=== PATIENT | male | born 1950 | race Caucasian/White ===

== ENCOUNTER → 2018-10-24 | Outpatient (CLI) | payer MEDICARE ==
--- NOTE | 2018-10-24 17:20 | XR ---
EXAMINATION TYPE: XR chest 2V DATE OF EXAM: 10/24/2018 COMPARISON: NONE HISTORY: J 20.9, cough and congestion TECHNIQUE: Frontal and lateral views of the chest are obtained. FINDINGS: There are prominent lung volumes which may be indicative of underlying COPD. There is no fo miguelina air space opacity, pleural effusion, or pneumothorax seen. The cardiac silhouette size is within normal limits. The osseous structures are intact. IMPRESSION: No acute cardiopulmonary process.
== END | disposition home or self-care (01) ==
LOC: RADXRMAIN 14:22
PROVIDERS: ATTEND Family Medicine
DX: J20.9 Acute bronchitis, unspecified (principal)
CPT/HCPCS: 71046

== ENCOUNTER 2019-02-17 04:06 | Emergency (ER) | payer MEDICARE ==
--- NOTE | 2019-02-17 04:33 | ED ---
Neuro HPI - General Chief Complaint: Neuro Symptoms/Deficit Stated Complaint: Weakness Time Seen by Provider: 02/17/19 04:09 Source: patient, family Mode of arrival: ambulatory Limitations: no limitations - History of Present Illness Is the patient presenting with stroke symptoms?: Yes Last Known Well Date: 02/17/19 Last Known Well Time: 03:00 Initial Comments: Jignesh is a pleasant 68-year-old gentleman who presents the ER today via EMS for evaluation of weakness and seizure-like activity. Patient reports that over the past couple days he has noticed some intermittent weakness of his left hand he has had to have his helping pull up his pants due to weakness in the h and however he's been getting along with his activities of daily living. He has also noticed some mild headache but no facial droop trouble speaking or swallowing. Patient reports he was in his usual state of health when he went to bed last night. He woke this morning at 3 AM from a distressing dream and reported that he had inability to move his left leg and worsening weakness of his left hand. Patient relates she was in can be able to get himself out of bed and asked his to call EMS. Patient also notes that after waking he seems to have developed a focal twitch or muscle spasm of his abdomen and left arm. This is new for him. Patient is awake alert oriented. - Related Data Home Medications: Home Medications Medication Instructions Recorded Confirmed Atorvastatin [Lipitor] 20 mg PO HS 12/18/15 10/31/17 Celecoxib [CeleBREX] 100 mg PO BID 12/18/15 10/31/17 Latanoprost/Pf [Latanoprost 0.005% 1 drop BOTH EYES HS 10/31/17 10/31/17 Eye Drop] Allergies/Adverse Reactions: Allergies Allergy/AdvReac Type Severity Reaction Status Date / Time venom-honey bee Allergy Swelling Verified 02/17/19 04:14 [bee venom (honey bee)] Review of Systems ROS Statement: Those systems with pertinent positive or pertinent negative responses have been documented in the HPI. ROS Other: All systems not noted in ROS Statement are negative. General Exam Limitations: no limitations Stroke MDM - Lab Data Result diagrams: 02/17/19 04:30 02/17/19 04:30 Lab Results 02/17/19 02/17/19 02/17/19 Range/Units 04:30 04:30 04:30 WBC 7.4 (3.8-10.6) k/uL RBC 5.00 (4.30-5.90) m/uL Hgb 16.0 (13.0-17.5) gm/dL Hct 46.3 (39.0-53.0) % MCV 92.7 (80.0-100.0) fL MCH 32.0 (25.0-35.0) pg MCHC 34.5 (31.0-37.0) g/dL RDW 12.3 (11.5-15.5) % Plt Count 172 (150-450) k/uL Neutrophils % 68 % Lymphocytes % 23 % Monocytes % 6 % Eosinophils % 1 % Basophils % 0 % Neutrophils # 5.0 (1.3-7.7) k/uL Lymphocytes # 1.7 (1.0-4.8) k/uL Monocytes # 0.5 (0-1.0) k/uL Eosinophils # 0.1 (0-0.7) k/uL Basophils # 0.0 (0-0.2) k/uL PT 10.0 (9.0-12.0) sec INR 0.9 (<1.2) APTT 22.6 (22.0-30.0) sec Sodium 139 (137-145) mmol/L Potassium 4.3 (3.5-5.1) mmol/L Chloride 105 (98-107) mmol/L Carbon Dioxide 25 (22-30) mmol/L Anion Gap 9 mmol/L BUN 21 H (9-20) mg/dL Creatinine 0.79 (0.66-1.25) mg/dL Est GFR (CKD-EPI)AfAm >90 (>60 ml/min/1.73 sqM) Est GFR (CKD-EPI)NonAf >90 (>60 ml/min/1.73 sqM) Glucose 127 H (74-99) mg/dL Calcium 9.3 (8.4-10.2) mg/dL Total Bilirubin 0.7 (0.2-1.3) mg/dL AST 23 (17-59) U/L ALT 32 (21-72) U/L Alkaline Phosphatase 51 (38-126) U/L Troponin I (0.000-0.034) ng/mL Total Protein 7.1 (6.3-8.2) g/dL Albumin 4.4 (3.5-5.0) g/dL 02/17/19 Range/Units 04:30 WBC (3.8-10.6) k/uL RBC (4.30-5.90) m/uL Hgb (13.0-17.5) gm/dL Hct (39.0-53.0) % MCV (80.0-100.0) fL MCH (25.0-35.0) pg MCHC (31.0-37.0) g/dL RDW (11.5-15.5) % Plt Count (150-450) k/uL Neutrophils % % Lymphocytes % % Monocytes % % Eosinophils % % Basophils % % Neutrophils # (1.3-7.7) k/uL Lymphocytes # (1.0-4.8) k/uL Monocytes # (0-1.0) k/uL Eosinophils # (0-0.7) k/uL Basophils # (0-0.2) k/uL PT (9.0-12.0) sec INR (<1.2) APTT (22.0-30.0) sec Sodium (137-145) mmol/L Potassium (3.5-5.1) mmol/L Chloride (98-107) mmol/L Carbon Dioxide (22-30) mmol/L Anion Gap mmol/L BUN (9-20) mg/dL Creatinine (0.66-1.25) mg/dL Est GFR (CKD-EPI)AfAm (>60 ml/min/1.73 sqM) Est GFR (CKD-EPI)NonAf (>60 ml/min/1.73 sqM) Glucose (74-99) mg/dL Calcium (8.4-10.2) mg/dL Total Bilirubin (0.2-1.3) mg/dL AST (17-59) U/L ALT (21-72) U/L Alkaline Phosphatase (38-126) U/L Troponin I <0.012 (0.000-0.034) ng/mL Total Protein (6.3-8.2) g/dL Albumin (3.5-5.0) g/dL - NIH Stroke Scale 1a. Level of Consciousness: (0) alert 1b. LOC Questions: (0) answers correctly 1c. LOC Commands: (0) performs tasks correctly 2. Best Gaze: (0) normal 3. Visual: (0) no visual loss 4. Facial Palsy: (0) normal symmetrical movement 5a. Motor Arm Left: (1) drift 5b. Motor Arm Right: (0) no drift 6a. Motor Leg Left: (3) no gravity effort 6b. Motor Leg Right: (0) no drift 7. Limb Ataxia: (1) present 1 limb 8. Sensory: (0) normal 9. Best Language: (0) no aphasia 10. Dysarthria: (0) normal 11. Extinction/Inattention: (0) no abnormality - Medical Decision Making The patient was seen and evaluated, history was obtained from the patient at bedside and EMS 68-year-old gentleman with a history of colon cancer presenting with recent headaches, recent weakness and left arm now that an onset of weakness in the left leg and twitching movements concerning for focal seizure of the abdominal wall her diaphragm. However these twitching movements seem to be distractible as the patient is not having numbness or testing strength and range of motion of the extremities. Considering the patient's history of recent headaches with new neurologic deficits there is concern for stroke vs mass therefore code stroke was activated I reviewed the patient's head CT as it was completed and found that he had a large right-sided mass with significant vasogenic edema, the lateral ventricle seems compressed however there is no significant midline shift no compression of the fourth ventricle no signs of hydrocephalus Patient care was discussed with interventional neurology inspector balance wheel motion Dr. Haas who also reviewed the patient's images from home and agrees this is likely a brain mass with vasogenic edema recommends Keppra and Decadron neck sign Keppra and Decadron ordered Patient care was discussed with transferring physician at [facility] who discussed the case with neurosurgery who accepts the transfer. Patient will be transferred as an ER to ER transfer for further evaluation by neurosurgery. Patient and were updated on findings concerning for possible metastatic disease versus primary brain mass with swelling. Advised that they will be given medications for the swelling and to slow seizures. Questions pertaining care were answered the best my ability patient's transferred to [facility] for neurosurgical evaluation. Upon receiving Decadron as it began to infuse slowly patient became bradycardic with a heart rate in the 30s, pale diaphoretic, blood pressure was noted to be in the 70s over 30s, this persisted for greater than 2 minutes and decision was made to give atropine for symptomatically bradycardia. Patient received atropine he remained bradycardic for her proximately another minute and then heart rate improved to 100 206 sinus tachycardia. Patient's blood pressure resolved. Patient reported he was feeling better. [facility] about this and requested the EMS transport priority 1 lights and sirens to expedite evaluation by neurosurgery. Past Medical History Past Medical History: Eye Disorder, Hyperlipidemia Additional Past Medical History / Comment(s): glaucoma History of Any Multi-Drug Resistant Organisms: None Reported Past Surgical History: No Surgical Hx Reported Additional Past Surgical History / Comment(s): Colonoscopies; Feet / toenails & cyst off foot; eye lasix surgery Past Anesthesia/Blood Transfusion Reactions: No Reported Reaction Past Psychological History: No Psychological Hx Reported Smoking Status: Current some day smoker Past Alcohol Use History: None Reported Past Drug Use History: None Reported - Past Family History Mother Family Medical History: Cancer Additional Family Medical History / Comment(s): Colon Cancer Course Vital Signs 02/17/19 02/17/19 02/17/19 04:07 04:17 04:27 Temperature 99 F Pulse Rate 83 78 80 Respiratory 20 Rate Blood Pressure 141/86 131/75 141/71 O2 Sat by Pulse 99 97 98 Oximetry 02/17/19 02/17/19 02/17/19 04:32 04:37 04:47 Temperature Pulse Rate 70 82 80 Respiratory 20 20 Rate Blood Pressure 140/74 135/72 O2 Sat by Pulse 98 98 Oximetry 02/17/19 02/17/19 02/17/19 05:00 05:05 05:07 Temperature Pulse Rate 35 L 31 L 105 H Respiratory 20 18 Rate Blood Pressure 122/62 76/46 129/80 O2 Sat by Pulse 95 Oximetry 02/17/19 02/17/19 02/17/19 05:12 05:15 05:35 Temperature 98.3 F Pulse Rate 111 H 112 H 110 H Respiratory 20 20 20 Rate Blood Pressure 144/96 118/85 118/85 O2 Sat by Pulse 96 99 98 Oximetry Critical Care Time Critical Care Time: Yes Total Critical Care Time: 30 Critical Care Time: Critical Care Time Critical care time was exclusive of separately billable procedures and treating other patients and teaching time. Critical care was necessary to treat or prevent imminent or life-threatening deterioration. Given the critical condition in which the patient arrived, the patient was immediately assessed by myself and the nurse, and cardiac monitoring initiated due to the potential for rapid decompensation of the patient's clinical condition. During the course of the patients stay, I spent a considerable amount of time at the bedside performing serial re-evaluations of the patient's hemodynamic and clinical status because of the recognized potential threat to life or limb in this condition. I then had a chance to review not only all of the available current laboratory and radiographic studies obtained today, but I also reviewed old records available to me at the time. Additionally, any ancillary information available including canal [employer] captain records were reviewed. Sequential vital signs were obtained. Disposition Clinical Impression: Brain mass, Cerebral edema, Stroke-like symptoms Disposition: OTHER INSTITUTION NOT DEFINED Condition: Serious Referrals: Dennis Salcido MD [Primary Care Provider] - 1-2 days - Out of Hospital Transfer - Req. Specs Out of Hospital Transfer - Requested Specifics: Other Emergency Center ([facility])
[2019-02-17] MEDS ORDERED: LORazepam 2 MG/ML INJ IV STA (04:35)
[2019-02-17] MEDS ORDERED: levETIRAcetam IV 1,000 MG in SALINE 1 100ML.BAG IVPB STA (04:49)
--- NOTE | 2019-02-17 04:50 | XR ---
EXAMINATION TYPE: XR chest 1V DATE OF EXAM: 02/17/2019 COMPARISON: 10/24/2018 HISTORY: Altered mental status TECHNIQUE: Single frontal view of the chest is obtained. FINDINGS: There is no heart failure nor confluent pneumonic infiltrate. Heart size is normal. Costop hrenic angles are clear. The bony thorax is intact. There are chest leads. IMPRESSION: Normal chest. No change.
[2019-02-17 04:51] LABS: Basophils % (A) 0 %; Eosinophils # (A) 0.1 k/uL (0-0.7); Eosinophils % (A) 1 %; HCT 46.3 % (39.0-53.0); Lymphocytes # (A) 1.7 k/uL (1.0-4.8); Lymphocytes % (A) 23 %; MCHC 34.5 g/dL (31.0-37.0); MCV 92.7 fL (80.0-100.0); Mean Platelet Volume 8.6; Monocytes # (A) 0.5 k/uL (0-1.0); Monocytes % (A) 6 %; Neutrophils % (A) 68 %; Platelet Count 172 k/uL (150-450); RDW 12.3 % (11.5-15.5); WBC 7.4 k/uL (3.8-10.6)
[2019-02-17] MEDS ORDERED: DEXAMETHASONE SOD PHOSPHATE 10 MG/ML 1 ML VIAL IV STA (04:52)
--- NOTE | 2019-02-17 04:53 | CT ---
EXAMINATION TYPE: CT brain wo con for TPA DATE OF EXAM: 02/17/2019 COMPARISON: None HISTORY: Left side weakness, spasms, code stroke CT DLP: 2258.40 mGycm Automated exposure control for dose reduction was used. There is a 3.2 cm rounded area of mixed density in the bruce-white matter junction right parietal lobe with surrounding edema. This is consistent with a tumor. There is some effacement of the occipital h orn right lateral ventricle. There is no sign of intracranial hemorrhage. Calvarium is intact. No oth er mass identified. Skull base is intact. IMPRESSION: Right parietal lobe mass with surrounding vasogenic edema consistent with tumor. Follow-up recommende d. Contrast CT or MR scan would be helpful for further evaluation if clinically indicated.
[2019-02-17 05:00] LABS: INR 0.9 (<1.2); Partial Thromboplastin Time 22.6 sec (22.0-30.0)
[2019-02-17 05:02] LABS: ALT 32 U/L (21-72); AST 23 U/L (17-59); African American GFR (CKD) >90 (>60 ml/min/1.73 sqM); Albumin 4.4 g/dL (3.5-5.0); Alkaline Phosphatase 51 U/L (38-126); Anion Gap 9 mmol/L; Blood Urea Nitrogen 21 mg/dL (9-20); Calcium 9.3 mg/dL (8.4-10.2); Carbon Dioxide 25 mmol/L (22-30); Chloride 105 mmol/L (98-107); Glucose 127 mg/dL (74-99); Non-African American GFR(CKD) >90 (>60 ml/min/1.73 sqM); Potassium 4.3 mmol/L (3.5-5.1); Sodium 139 mmol/L (137-145); Total Bilirubin 0.7 mg/dL (0.2-1.3); Total Protein 7.1 g/dL (6.3-8.2)
[2019-02-17] MEDS ORDERED: ATROPINE SULFATE 0.1 MG/ML 10ML SYRINGE IV STA (05:06)
[2019-02-17 05:14] VITALS: RESP 20
[2019-02-17 05:17] VITALS: BP 118/85; TEMP 98.3
[2019-02-17 05:36] VITALS: PULSE 110
== END 2019-02-17 05:36 | disposition other institution (70) ==
LOC: EC 04:06
DX: G93.6 Cerebral edema (principal); G93.89 Other specified disorders of brain; R29.90 Unspecified symptoms and signs involving the nervous system; E78.5 Hyperlipidemia, unspecified; F17.200 Nicotine dependence, unspecified, uncomplicated; Z79.899 Other long term (current) drug therapy; Z91.030 Bee allergy status; Z85.038 Personal history of other malignant neoplasm of large intestine
CPT/HCPCS: 36415; 93005; 80053; 84484; 85025; 85610; 85730; 71045; 70450; 99291; 96365; 96375 ×3; J2060; J1100; J0461; J1953

== ENCOUNTER 2019-10-29 15:48 | Emergency (ER) | payer MEDICARE ==
[2019-10-29 15:56] VITALS: RESP 18
[2019-10-29 16:53] LABS: Anisocytosis Moderate; HCT 29.5 % (39.0-53.0); HGB 9.4 gm/dL (13.0-17.5); Hypochromasia Moderate; MCH 38.4 pg (25.0-35.0); MCV 120.3 fL (80.0-100.0); Macrocytosis Marked; Mean Platelet Volume 10.3; Poikilocytosis Moderate; RBC 2.45 m/uL (4.30-5.90); RDW 21.4 % (11.5-15.5)
[2019-10-29 17:32] LABS: Anisocytosis (M) Present; Band Neutrophils % 3 %; Lymphocytes # (M) 0.48 k/uL (1.0-4.8); Monocytes # (M) 0.36 k/uL (0-1.0); Neutrophils % (M) 84 %; Nucleated Red Blood Cells 2 /100 WBC (0-0); Poikilocytosis (M) Present; Polychromasia Present; Total Cells Counted 200
[2019-10-29 17:33] LABS: Platelet Count 87 k/uL (150-450)
--- NOTE | 2019-10-29 17:44 | ED ---
Lower Extremity Injury HPI - General Chief Complaint: Extremity Injury, Lower Stated Complaint: Blood Clot from [facility] Time Seen by Provider: 10/29/19 15:59 Source: patient Mode of arrival: ambulatory Limitations: no limitations - History of Present Illness Initial Comments: 69yo [facility] + [facility]. Patietn staets he has had on and off s welling x 3 weeks. Patient states yesterday was the worst. 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 Patient denies pain. Denies shortness of breath, hemoptysis, or pain wtih deep breath/chest pain. Patient denies anticoagulation use. Admits to [facility] at time. Denies recent surgeries. Patient has no additional complaints. Upon arrival patient appears well there is no signs of acute distress. - Related Data Home Medications Medication Instructions Recorded Confirmed Atorvastatin [Lipitor] 20 mg PO HS 12/18/15 10/31/17 Celecoxib [CeleBREX] 100 mg PO BID 12/18/15 10/31/17 Latanoprost/Pf [Latanoprost 0.005% 1 drop BOTH EYES HS 10/31/17 10/31/17 Eye Drop] Previous Rx's Medication Instructions Recorded Apixaban [Eliquis Starter Pack 0 mg PO DIRECTED 30 Days #1 pack 10/29/19 (for VTE)] Allergies Allergy/AdvReac Type Severity Reaction Status Date / Time venom-honey bee Allergy Swelling Verified 10/29/19 15:53 [bee venom (honey bee)] Review of Systems ROS Statement: Those systems with pertinent positive or pertinent negative responses have been documented in the HPI. ROS Other: All systems not noted in ROS Statement are negative. Past Medical History Past Medical History: Eye Disorder, Hyperlipidemia Additional Past Medical History / Comment(s): glaucoma, brain tumor History of Any Multi-Drug Resistant Organisms: None Reported Past Surgical History: No Surgical Hx Reported Additional Past Surgical History / Comment(s): Colonoscopies; Feet / toenails & cyst off foot; eye lasix surgery, brain surgery for R sided tumor Past Anesthesia/Blood Transfusion Reactions: No Reported Reaction Past Psychological History: No Psychological Hx Reported Smoking Status: Never smoker Past Alcohol Use History: None Reported Past Drug Use History: None Reported - Past Family History Mother Family Medical History: Cancer Additional Family Medical History / Comment(s): Colon Cancer General Exam - General Exam Comments Initial Comments: General: The patient is awake and alert, in no distress, and does not appear acutely ill. Eye: Pupils are equal, round and reactive to light, extra-ocular movements are intact. No nystagmus. There is normal conjunctiva bilaterally. No signs of icterus. Cardiovascular: There is a regular rate and rhythm. No murmur, rub or gallop is appreciated. Respiratory: Lungs are clear to auscultation, respirations are non-labored, breath sounds are equal. No wheezes, stridor, rales, or rhonchi. Musculoskeletal: Normal ROM, no tenderness. Strength 5/5. Sensation intact. DP pulses equal bilaterally 2+. Neurological: A&O x 3. CN II-XII intact grossly, There are no obvious motor or sensory deficits. Coordination appears grossly intact. Speech is normal. Skin: Skin is warm and dry and no rashes or lesions are noted. LEft LE swelling, mild-moderate. Psychiatric: Cooperative, appropriate mood & affect, normal judgment. Limitations: no limitations Course Vital Signs 10/29/19 10/29/19 15:53 18:13 Temperature 98.1 F 98.3 F Pulse Rate 74 63 Respiratory 18 18 Rate Blood Pressure 127/82 133/73 O2 Sat by Pulse 98 98 Oximetry Medical Decision Making - Medical Decision Making + popliteal DVT. Platelets 87. Patient denies recent procedures. Patient will be treated with eliquis. Discussed case [facility]. Attempted to contact oncologist, no success. Patient is to contact oncologist office in AM. Return parameters and risks of bleeding discussed, patient discharged appearing well agreeable to care plan. - Lab Data Result diagrams: 10/29/19 16:28 Lab Results 10/29/19 Range/Units 16:28 WBC 6.0 (3.8-10.6) k/uL RBC 2.45 L (4.30-5.90) m/uL Hgb 9.4 L (13.0-17.5) gm/dL Hct 29.5 L (39.0-53.0) % MCV 120.3 H (80.0-100.0) fL MCH 38.4 H (25.0-35.0) pg MCHC 32.0 (31.0-37.0) g/dL RDW 21.4 H (11.5-15.5) % Plt Count 87 L (150-450) k/uL Neutrophils % (Manual) 84 % Band Neutrophils % 3 % Lymphocytes % (Manual) 8 % Monocytes % (Manual) 6 % Neutrophils # (Manual) 5.20 (1.3-7.7) k/uL Lymphocytes # (Manual) 0.48 L (1.0-4.8) k/uL Monocytes # (Manual) 0.36 (0-1.0) k/uL Nucleated RBCs 2 H (0-0) /100 WBC Manual Slide Review Performed Polychromasia Present Hypochromasia Moderate Poikilocytosis Moderate Poikilocytosis (manual Present Anisocytosis Moderate Anisocytosis (manual) Present Macrocytosis Marked A Disposition Clinical Impression: DVT (deep venous thrombosis), Left leg swelling Disposition: HOME SELF-CARE Condition: Good Instructions (If sedation given, give patient instructions): Deep Vein Thrombosis (ED) Additional Instructions: Please use medication as discussed. Please follow-up with family doctor in the next 2 days. Contact oncologist tomorrow AM to discuss findings. Please return to emergency room if the symptoms increase or worsen or for any other concerns. Prescriptions: Apixaban [Eliquis Starter Pack (for VTE)] 0 mg PO DIRECTED 30 Days #1 pack Is patient prescribed a controlled substance at d/c from ED?: No Referrals: Dennis Salcido MD [Primary Care Provider] - 1-2 days Time of Disposition: 17:44
[2019-10-29 18:14] VITALS: BP 133/73; PULSE 63; TEMP 98.3
== END 2019-10-29 18:15 | disposition home or self-care (01) ==
LOC: EC 15:48
DX: I82.439 Acute embolism and thrombosis of unspecified popliteal vein (principal); E78.5 Hyperlipidemia, unspecified; Z79.899 Other long term (current) drug therapy; Z91.030 Bee allergy status; Z85.841 Personal history of malignant neoplasm of brain
CPT/HCPCS: 36415; 85025; 99283

== ENCOUNTER → 2019-10-29 | Outpatient (CLI) | payer MEDICARE ==
--- NOTE | 2019-10-29 15:43 | US ---
EXAMINATION TYPE: US venous doppler duplex LE DATE OF EXAM: 10/29/2019 3:29 PM COMPARISON: NONE CLINICAL HISTORY: R60.0 edema. Left leg swelling SIDE PERFORMED: Bilateral TECHNIQUE: The lower extremity deep venous system is examined utilizing real time linear array sonog jono with graded compression, doppler sonography and color-flow sonography. VESSELS IMAGED: External Iliac Vein (EIV) Common Femoral Vein Deep Femoral Vein Greater Saphenous Vein * Femoral Vein Popliteal Vein Small Saphenous Vein * Proximal Calf Veins (* superficial vessels) Right Leg: Appears negative for DVT Left Leg: Positive for DVT popliteal vein IMPRESSION: 1. Exam positive for acute DVT left popliteal vein.
== END | disposition home or self-care (01) ==
LOC: RADUSWWP 14:55
PROVIDERS: ATTEND Family Medicine
DX: I82.432 Acute embolism and thrombosis of left popliteal vein (principal)
CPT/HCPCS: 93970

== ENCOUNTER 2020-02-27 22:35 | Emergency (ER) | payer MEDICARE ==
[2020-02-27] MEDS ORDERED: LORazepam 2 MG/ML INJ IV STA (22:40)
[2020-02-27 23:01] LABS: Basophils % (A) 1 %; Eosinophils % (A) 1 %; HCT 44.9 % (39.0-53.0); HGB 15.5 gm/dL (13.0-17.5); Lymphocytes # (A) 0.9 k/uL (1.0-4.8); Lymphocytes % (A) 15 %; MCH 33.6 pg (25.0-35.0); MCHC 34.4 g/dL (31.0-37.0); MCV 97.7 fL (80.0-100.0); Mean Platelet Volume 7.5; Monocytes # (A) 0.3 k/uL (0-1.0); Monocytes % (A) 5 %; Neutrophils # (A) 4.4 k/uL (1.3-7.7); Neutrophils % (A) 78 %; Platelet Count 104 k/uL (150-450); RDW 14.6 % (11.5-15.5); WBC 5.7 k/uL (3.8-10.6)
[2020-02-27 23:10] LABS: ALT 30 U/L (4-49); AST 24 U/L (17-59); African American GFR (CKD) >90 (>60 ml/min/1.73 sqM); Albumin 3.8 g/dL (3.5-5.0); Alkaline Phosphatase 34 U/L (38-126); Anion Gap 8 mmol/L; Blood Urea Nitrogen 23 mg/dL (9-20); Carbon Dioxide 22 mmol/L (22-30); Chloride 107 mmol/L (98-107); Glucose 147 mg/dL (74-99); Magnesium 1.8 mg/dL (1.6-2.3); Non-African American GFR(CKD) >90 (>60 ml/min/1.73 sqM); Sodium 137 mmol/L (137-145); Total Bilirubin 0.7 mg/dL (0.2-1.3); Total Protein 6.1 g/dL (6.3-8.2)
--- NOTE | 2020-02-27 23:26 | ED ---
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 He takes Keppra for seizure control and it has been weeks since previous seizure. He states that tonight a bit after 8 PM noticed that he was having tonic-clonic movements of his left lower extremity up to his abdomen. He states this is characteristic of the partial focal seizures that he gets. He tried taking home Xanax, but when symptoms persisted for 60 minutes he called EMS. He was given dose of Versed 2 mg. The patient states she has been compliant with his Keppra. He states that he was stressed somewhat about making Dominique arrangements. The patient denies any other change. No headache. No fever or chills. No generalization or loss consciousness. MD Complaint: seizure Onset/Timin -: hour(s) Description of Episode: tonic-clonic movement Duration of Episode: 60 -: minutes(s) Witnessed: yes - by bystander Trauma: No Seizure History: known seizure disorder Possible Precipitating Event: stress Associated Symptoms: denies other symptoms Treatments Prior to Arrival: benzodiazepines - Related Data Home Medications Medication Instructions Recorded Confirmed Atorvastatin [Lipitor] 20 mg PO HS 12/18/15 02/27/20 Latanoprost/Pf [Latanoprost 0.005% 1 drop BOTH EYES HS 10/31/17 02/27/20 Eye Drop] ALPRAZolam [Xanax] 0.5 mg PO HS PRN 02/27/20 02/27/20 Apixaban [Eliquis] 5 mg PO BID 02/27/20 02/27/20 Diclofenac Sodium Gel [Voltaren 2 gm TOPICAL DAILY PRN 02/27/20 02/27/20 Gel] Lidocaine-Prilocaine Cream [Emla 1 applic TOPICAL DAILY PRN 02/27/20 02/27/20 Cream 2.5%/2.5%] Omeprazole 20 mg PO DAILY 02/27/20 02/27/20 Sulfamethox-Tmp 800-160Mg [Bactrim 1 tab PO MOWEFR 02/27/20 02/27/20 DS 800-160 mg] Zolpidem [Ambien] 5 mg PO HS 02/27/20 02/27/20 dexAMETHasone [Dexamethasone] 2 mg PO DAILY 02/27/20 02/27/20 levETIRAcetam [Keppra] 1,000 mg PO HS 02/27/20 02/27/20 levETIRAcetam [Keppra] 500 mg PO DAILY 02/27/20 02/27/20 Previous Rx's Medication Instructions Recorded diazePAM [Valium] 5 mg PO Q8HR PRN 3 Days #9 tab 02/28/20 Allergies Allergy/AdvReac Type Severity Reaction Status Date / Time venom-honey bee Allergy Swelling Verified 02/27/20 23:40 [bee venom (honey bee)] Review of Systems ROS Statement: Those systems with pertinent positive or pertinent negative responses have been documented in the HPI. ROS Other: All systems not noted in ROS Statement are negative. Constitutional: Denies: fever, chills Eyes: Denies: vision change ENT: Denies: hearing loss Respiratory: Denies: cough, dyspnea Cardiovascular: Denies: chest pain, palpitations, syncope Gastrointestinal: Denies: abdominal pain, vomiting, diarrhea Genitourinary: Denies: dysuria, hematuria Musculoskeletal: Denies: back pain Skin: Denies: rash Neurological: Reports: as per HPI. Denies: headache, weakness, numbness, paresthesias, confusion Psychiatric: Reports: anxiety Past Medical History Past Medical History: Eye Disorder, Hyperlipidemia Additional Past Medical History / Comment(s): glaucoma, brain tumor History of Any Multi-Drug Resistant Organisms: None Reported Past Surgical History: No Surgical Hx Reported Additional Past Surgical History / Comment(s): Colonoscopies; Feet / toenails & cyst off foot; eye lasix surgery, brain surgery for R sided tumor Past Anesthesia/Blood Transfusion Reactions: No Reported Reaction Past Psychological History: No Psychological Hx Reported Smoking Status: Never smoker Past Alcohol Use History: None Reported Past Drug Use History: None Reported - Past Family History Mother Family Medical History: Cancer Additional Family Medical History / Comment(s): Colon Cancer General Exam General appearance: alert, in no apparent distress Head exam: Present: atraumatic, normocephalic Eye exam: Present: normal appearance. Absent: scleral icterus, conjunctival injection ENT exam: Present: normal oropharynx Neck exam: Present: normal inspection, full ROM. Absent: tenderness Respiratory exam: Present: normal lung sounds bilaterally. Absent: respiratory distress, wheezes, rales, rhonchi, stridor Cardiovascular Exam: Present: regular rate, normal rhythm, normal heart sounds. Absent: systolic murmur, diastolic murmur, rubs, gallop GI/Abdominal exam: Present: soft. Absent: distended, tenderness, guarding, rebound, rigid, mass Extremities exam: Present: normal inspection, normal capillary refill. Absent: pedal edema, calf tenderness Back exam: Present: normal inspection. Absent: CVA tenderness (R), CVA tenderness (L) Neurological exam: Present: alert, oriented X3, CN II-XII intact. Absent: motor sensory deficit Skin exam: Present: warm, dry, intact, normal color. Absent: rash Course Vital Signs 02/27/20 02/28/20 22:37 00:29 Temperature 97.5 F L Pulse Rate 100 78 Respiratory 19 18 Rate Blood Pressure 173/111 130/89 O2 Sat by Pulse 94 L 98 Oximetry Medical Decision Making - Lab Data Result diagrams: 02/27/20 22:47 02/27/20 22:47 Lab Results 02/27/20 02/27/20 02/27/20 Range/Units 22:47 22:47 22:47 WBC 5.7 (3.8-10.6) k/uL RBC 4.60 (4.30-5.90) m/uL Hgb 15.5 (13.0-17.5) gm/dL Hct 44.9 (39.0-53.0) % MCV 97.7 (80.0-100.0) fL MCH 33.6 (25.0-35.0) pg MCHC 34.4 (31.0-37.0) g/dL RDW 14.6 (11.5-15.5) % Plt Count 104 L (150-450) k/uL MPV 7.5 Neutrophils % 78 % Lymphocytes % 15 % Monocytes % 5 % Eosinophils % 1 % Basophils % 1 % Neutrophils # 4.4 (1.3-7.7) k/uL Lymphocytes # 0.9 L (1.0-4.8) k/uL Monocytes # 0.3 (0-1.0) k/uL Eosinophils # 0.0 (0-0.7) k/uL Basophils # 0.0 (0-0.2) k/uL Sodium 137 (137-145) mmol/L Potassium 4.0 (3.5-5.1) mmol/L Chloride 107 (98-107) mmol/L Carbon Dioxide 22 (22-30) mmol/L Anion Gap 8 mmol/L BUN 23 H (9-20) mg/dL Creatinine 0.65 L (0.66-1.25) mg/dL Est GFR (CKD-EPI)AfAm >90 (>60 ml/min/1.73 sqM) Est GFR (CKD-EPI)NonAf >90 (>60 ml/min/1.73 sqM) Glucose 147 H (74-99) mg/dL Plasma Lactic Acid Leo 3.1 H* (0.7-2.0) mmol/L Calcium 9.0 (8.4-10.2) mg/dL Magnesium 1.8 (1.6-2.3) mg/dL Total Bilirubin 0.7 (0.2-1.3) mg/dL AST 24 (17-59) U/L ALT 30 (4-49) U/L Alkaline Phosphatase 34 L (38-126) U/L Total Protein 6.1 L (6.3-8.2) g/dL Albumin 3.8 (3.5-5.0) g/dL - EKG Data -: EKG Interpreted by Il EKG shows normal: sinus rhythm, axis (Normal), intervals (Normal), QRS complexes (Normal), ST-T waves (Normal) Rate: normal (Rate 89 bpm) Interpretation: normal EKG Disposition Clinical Impression: Focal seizure Disposition: HOME SELF-CARE Condition: Good Instructions (If sedation given, give patient instructions): Recurrent Seizures in Adults (ED) Prescriptions: diazePAM [Valium] 5 mg PO Q8HR PRN 3 Days #9 tab PRN Reason: Seizures Is patient prescribed a controlled substance at d/c from ED?: No Referrals: Dennis Salcido MD [Primary Care Provider] - 1-2 days
--- NOTE | 2020-02-27 23:35 | CT ---
EXAM: CT Head Without Intravenous Contrast CLINICAL HISTORY: ITS.REASON CT Reason: seizure TECHNIQUE: Axial computed tomography images of the head/brain without intravenous contrast. CTDI is 49.27 mGy and DLP is 1166.4 mGy-cm. This CT exam was performed using one or more of the following dose reduction techniques: automated exposure control, adjustment of the mA and/or kV according to patient size, and/or use of iterative reconstruction technique. COMPARISON: CT head dated 02/17/2019 FINDINGS: Brain: No acute infarct or hemorrhage. There is an ill-defined lesion with calcification and moderate vasogenic edema seen within the right parietal lobe likely representing neoplasm. Correlate with patient history. Ventricles: Unremarkable. No ventriculomegaly. Bones/joints: Status post right allegra-craniotomy. No acute calvarial fracture. Soft tissues: Unremarkable. Sinuses: Unremarkable as visualized. Mastoid air cells: Unremarkable as visualized. IMPRESSION: 1. No acute infarct or hemorrhage. 2. There is an ill-defined lesion with calcification and moderate vasogenic edema seen within the right parietal lobe likely representing known neoplasm. Correlate with patient history and recent MRI.
[2020-02-28] MEDS ORDERED: SODIUM CHLORIDE 0.9% 1,000 ML IV ONE (00:17)
[2020-02-28 00:33] VITALS: RESP 18
[2020-02-28 03:06] VITALS: BP 150/65; PULSE 65; TEMP 97.6
== END 2020-02-28 02:55 | disposition home or self-care (01) ==
LOC: EC 22:35
DX: R56.9 Unspecified convulsions (principal); E78.5 Hyperlipidemia, unspecified; Z79.899 Other long term (current) drug therapy; Z79.01 Long term (current) use of anticoagulants; Z91.030 Bee allergy status; Z85.841 Personal history of malignant neoplasm of brain
CPT/HCPCS: 36415; 80053; 80177; 83605; 83735; 85025; 70450; 99284; 96374; 96361; J2060

== ENCOUNTER 2020-03-23 04:52 | Observation (INO) | payer MEDICARE ==
--- NOTE | 2020-03-23 04:55 | ED ---
Fall HPI - General Stated Complaint: Fall Time Seen by Provider: 03/23/20 04:54 Source: RN notes reviewed, old records reviewed Mode of arrival: EMS Limitations: no limitations - History of Present Illness Initial Comments: This is a 62-year-old male who fell on Bobbi mother going to the bathroom tonight. heard a crash and her patient yelled for help. Patient was found on the ground with a laceration on the front aspect of his forehead, into the hairline. Minimal bleeding. Patient denies loss of consciousness no neck pain. Again patient is on a blood thineer. No other injury from this fall MD Complaint: fall -: minutes(s) Fall From: standing When Fall Occurred: 1 hour LICENSED ARCHITECT Fall Witnessed: yes, by family Place Fall Occurred: home Loss of Consciousness: none Prolonged Down Time?: no Symptoms Prior to Fall: none Location: head, face, neck Severity: mild Severity scale (1-10): 4 Context: tripped/slipped Associated Symptoms: denies - Related Data Home Medications Medication Instructions Recorded Confirmed Atorvastatin [Lipitor] 20 mg PO HS 12/18/15 02/27/20 Latanoprost/Pf [Latanoprost 0.005% 1 drop BOTH EYES HS 10/31/17 02/27/20 Eye Drop] ALPRAZolam [Xanax] 0.5 mg PO HS PRN 02/27/20 02/27/20 Apixaban [Eliquis] 5 mg PO BID 02/27/20 02/27/20 Diclofenac Sodium Gel [Voltaren 2 gm TOPICAL DAILY PRN 02/27/20 02/27/20 Gel] Lidocaine-Prilocaine Cream [Emla 1 applic TOPICAL DAILY PRN 02/27/20 02/27/20 Cream 2.5%/2.5%] Omeprazole 20 mg PO DAILY 02/27/20 02/27/20 Sulfamethox-Tmp 800-160Mg [Bactrim 1 tab PO MOWEFR 02/27/20 02/27/20 DS 800-160 mg] Zolpidem [Ambien] 5 mg PO HS 02/27/20 02/27/20 dexAMETHasone [Dexamethasone] 2 mg PO DAILY 02/27/20 02/27/20 levETIRAcetam [Keppra] 1,000 mg PO HS 02/27/20 02/27/20 levETIRAcetam [Keppra] 500 mg PO DAILY 02/27/20 02/27/20 Previous Rx's Medication Instructions Recorded diazePAM [Valium] 5 mg PO Q8HR PRN 3 Days #9 tab 02/28/20 Allergies Allergy/AdvReac Type Severity Reaction Status Date / Time venom-honey bee Allergy Swelling Verified 03/23/20 06:57 [bee venom (honey bee)] Review of Systems ROS Statement: Those systems with pertinent positive or pertinent negative responses have been documented in the HPI. ROS Other: All systems not noted in ROS Statement are negative. Past Medical History Past Medical History: Eye Disorder, Hyperlipidemia Additional Past Medical History / Comment(s): glaucoma, brain tumor History of Any Multi-Drug Resistant Organisms: None Reported Past Surgical History: No Surgical Hx Reported Additional Past Surgical History / Comment(s): Colonoscopies; Feet / toenails & cyst off foot; eye lasix surgery, brain surgery for R sided tumor Past Anesthesia/Blood Transfusion Reactions: No Reported Reaction Past Psychological History: No Psychological Hx Reported Smoking Status: Never smoker Past Alcohol Use History: None Reported Past Drug Use History: None Reported - Past Family History Mother Family Medical History: Cancer Additional Family Medical History / Comment(s): Colon Cancer General Exam General appearance: alert, in no apparent distress Head exam: Present: normocephalic, normal inspection. Absent: atraumatic (3cm laceration tofront of head) Eye exam: Present: normal appearance, PERRL, EOMI. Absent: scleral icterus, conjunctival injection, periorbital swelling ENT exam: Present: normal exam, mucous membranes moist Neck exam: Present: normal inspection. Absent: tenderness, meningismus, lymphadenopathy Respiratory exam: Present: normal lung sounds bilaterally. Absent: respiratory distress, wheezes, rales, rhonchi, stridor Cardiovascular Exam: Present: regular rate, normal rhythm, normal heart sounds. Absent: systolic murmur, diastolic murmur, rubs, gallop, clicks GI/Abdominal exam: Present: soft, normal bowel sounds. Absent: distended, tenderness, guarding, rebound, rigid Extremities exam: Present: normal inspection, full ROM, normal capillary refill. Absent: tenderness, pedal edema, joint swelling, calf tenderness Back exam: Present: normal inspection Neurological exam: Present: alert, oriented X3, CN II-XII intact Psychiatric exam: Present: normal affect, normal mood Skin exam: Present: warm, dry, intact, normal color. Absent: rash Course Vital Signs 03/23/20 03/23/20 05:03 06:32 Temperature 98.8 F Pulse Rate 60 50 L Respiratory 19 18 Rate Blood Pressure 180/90 179/91 O2 Sat by Pulse 98 99 Oximetry - Reevaluation(s) Reevaluation #1: 03/23/20 07:04 Medical record is reviewed Reevaluation #2: 03/23/20 07:04 Patient with difficult to control pain here in the ER, unable to ambulate secondary severe pain Reevaluation #3: 03/23/20 07:05 Patient remains with difficult to control pain, will admit for pain control secondary to compression fractures - Consultations Consultation #1: Spoke with Dr. Omari plaza for admission Procedures - Laceration Laceration #1 Consent Obtained: verbal consent Indication: laceration Site: scalp, face Size (cm): 4 Description: linear Depth: simple, single layer Pre-repair: wound explored, irrigated extensively Type of Sutures: other (polly) Technique: simple, interrupted Patient Tolerated Procedure: well Medical Decision Making - Medical Decision Making 70 male DF status post fall, mechanical trip and fall. Laceration of front of head which has been repaired. Patient can be discharged home normal computed tomography scan - Radiology Data Radiology results: report reviewed (CT brain Cspine negative for aute , CXR negative for acute disease), image reviewed Disposition Clinical Impression: Fall, Scalp laceration, Head injury, Compression fracture Narrative: Thoracic Spine Compression Fracture Disposition: ADMITTED IP TO THIS [facility] Condition: Good Is patient prescribed a controlled substance at d/c from ED?: No Referrals: Dennis Salcido MD [Primary Care Provider] - 1-2 days
[2020-03-23] MEDS ORDERED: ACETAMINOPHEN TAB 325 MG TAB PO STA (05:46)
--- NOTE | 2020-03-23 06:06 | CT ---
EXAM: CT Head Without Intravenous Contrast CLINICAL HISTORY: ITS.REASON CT Reason: fall TECHNIQUE: Axial computed tomography images of the head/brain without intravenous contrast. CTDI is 45.2 mGy and DLP is 1057 mGy-cm. This CT exam was performed using one or more of the following dose reduction techniques: automated exposure control, adjustment of the mA and/or kV according to patient size, and/or use of iterative reconstruction technique. Coronal and sagittal reformatted images were created and reviewed. COMPARISON: 02/27/20 FINDINGS: Brain: Moderate age-related generalized brain volume loss and chronic small vessel ischemic changes. Encephalomalacia of right parietal lobe with curvilinear calcification in periventricular white matter, unchanged. No hemorrhage. Ventricles: Unremarkable. No ventriculomegaly. Bones/joints: Right frontal/parietal craniotomy with sloan holes No acute fracture. Soft tissues: Unremarkable. Sinuses: Unremarkable as visualized. No acute sinusitis. Mastoid air cells: Unremarkable as visualized. No mastoid effusion. IMPRESSION: No acute intracranial findings or substantial change EXAM: CT Cervical Spine Without Intravenous Contrast CLINICAL HISTORY: fall TECHNIQUE: Axial computed tomography images of the cervical spine without intravenous contrast. CTDI is 15.9 mGy and DLP is 457.4 mGy-cm. This CT exam was performed using one or more of the following dose reduction techniques: automated exposure control, adjustment of the mA and/or kV according to patient size, and/or use of iterative reconstruction technique. Coronal and sagittal reformatted images were created and reviewed. COMPARISON: No relevant prior studies available. FINDINGS: Vertebrae: Superior endplate compression fracture of T3 with the about 15 % loss in height. Suspect superior endplate compression fracture of T2 and T4 with minimal loss in height. T4 vertebral body is partially visualized. Osteopenia. Discs/spinal canal/neural foramina: Mild to moderate degenerative disc disease. No spinal canal stenosis. Soft tissues: Unremarkable. Lung apices: Subtle groundglass opacities in the visualized lung apices, suggest underinflation versus minimal pulmonary edema. IMPRESSION: 1. No subluxation. 2. Superior endplate compression fracture of T3 with the about 15 % loss in height. Suspect superior endplate compression fracture of T2 and T4 with minimal loss in height. T4 vertebral body is partially visualized. Please correlate with mechanism of injury and location of pain.
[2020-03-23] MEDS ORDERED: GELATIN SPONGE,ABSORB (LARGE) 1 EACH SPONGE TOPICAL STA (06:12)
[2020-03-23] MEDS ORDERED: MORPHINE SULFATE 4 MG/ML SYRINGE IM STA (06:21)
--- NOTE | 2020-03-23 07:00 | XR ---
EXAMINATION TYPE: XR chest 1V DATE OF EXAM: 03/23/2020 COMPARISON: Chest x-ray February 17, 2019 HISTORY: Fall injury with chest pain. TECHNIQUE: Single AP portable frontal upright view of the chest is obtained. FINDINGS: There is new right internal jugular Mediport catheter terminating in SVC. There is chronic parenchymal changes bilaterally with patchy lateral left basilar opacity. Right lung is clear. No pl eural effusion or pneumothorax seen bilaterally. The cardiac silhouette size is enlarged and slightly more prominent. The osseous structures are intact. IMPRESSION: Chronic changes and cardiomegaly with new patchy lateral left basal acute atelectasis an d/or infiltrate.
[2020-03-23] MEDS ORDERED: SODIUM CHLORIDE 0.9% 1,000 ML IV STA (07:01)
[2020-03-23] MEDS ORDERED: SODIUM CHLORIDE 0.9% 1,000 ML IV ONE (07:01)
[2020-03-23 07:45] LABS: ALT 32 U/L (4-49); AST 27 U/L (17-59); African American GFR (CKD) >90 (>60 ml/min/1.73 sqM); Albumin 3.6 g/dL (3.5-5.0); Alkaline Phosphatase 37 U/L (38-126); Anion Gap 6 mmol/L; Blood Urea Nitrogen 18 mg/dL (9-20); Carbon Dioxide 28 mmol/L (22-30); Chloride 104 mmol/L (98-107); Creatine Kinase 44 U/L (55-170); Glucose 107 mg/dL (74-99); Magnesium 1.6 mg/dL (1.6-2.3); Non-African American GFR(CKD) >90 (>60 ml/min/1.73 sqM); Phosphorus 3.2 mg/dL (2.5-4.5); Potassium 3.3 mmol/L (3.5-5.1); Sodium 138 mmol/L (137-145); Total Bilirubin 1.2 mg/dL (0.2-1.3); Total Protein 5.8 g/dL (6.3-8.2)
[2020-03-23 07:46] LABS: Basophils % (A) 0 %; Eosinophils % (A) 0 %; HCT 40.1 % (39.0-53.0); HGB 13.6 gm/dL (13.0-17.5); Lymphocytes # (A) 1.2 k/uL (1.0-4.8); Lymphocytes % (A) 13 %; MCH 33.1 pg (25.0-35.0); MCV 97.2 fL (80.0-100.0); Mean Platelet Volume 7.3; Monocytes # (A) 0.5 k/uL (0-1.0); Monocytes % (A) 6 %; Neutrophils # (A) 7.3 k/uL (1.3-7.7); Neutrophils % (A) 80 %; Platelet Count 104 k/uL (150-450); RBC 4.12 m/uL (4.30-5.90); RDW 15.5 % (11.5-15.5); WBC 9.1 k/uL (3.8-10.6)
[2020-03-23 10:04] LABS: Appearance,Urine Clear (Clear); Bilirubin,Urine Negative (Negative); Blood,Urine Negative (Negative); Color,Urine Yellow; Glucose,Urine (UA) Negative (Negative); Ketones,Urine Negative (Negative); Leukocyte Esterase,Urine Negative (Negative); Nitrite,Urine Negative (Negative); Protein,Urine Trace (Negative); Specific Gravity,Urine 1.024 (1.001-1.035)
[2020-03-23] MEDS ORDERED: LIDOCAINE-PRILOCAINE 2.5-2.5% CREAM 5 GM TUBE TOPICAL PRN (10:59)
[2020-03-23] MEDS ORDERED: Potassium Replacement Protocol 1 EACH MISC MISCELLANE PRN (11:01)
[2020-03-23] MEDS ORDERED: dexAMETHasone 2 MG TAB PO SCH (11:15)
[2020-03-23] MEDS: PANTOPRAZOLE 40 MG TABLET PO SCH (11:57)
[2020-03-23] MEDS: POTASSIUM CHLORIDE ER 20 MEQ TAB.ER PO SCH ×2 (11:57→13:02)
[2020-03-23] MEDS: MORPHINE SULFATE 4 MG/ML SYRINGE IV PRN (11:58)
[2020-03-23] MEDS ORDERED: SULFAMETHOX-TMP 800-160MG 1 EACH TAB PO SCH (12:00)
[2020-03-23] MEDS: levETIRAcetam 500 MG TAB PO SCH (13:01)
[2020-03-23] MEDS ORDERED: LORazepam 2 MG/ML INJ IV STA (18:09)
[2020-03-23] MEDS ORDERED: LORazepam 2 MG/ML INJ IV PRN (18:28)
[2020-03-23] MEDS: LORazepam 2 MG/ML INJ IV PRN ×2 (19:05→19:25)
[2020-03-23] MEDS ORDERED: ATORVASTATIN 20 MG TAB PO SCH (21:00)
[2020-03-23] MEDS ORDERED: LATANOPROST 0.005% OPHTH DROPS 2.5 ML BTL BOTH EYES SCH (21:00)
[2020-03-23] MEDS ORDERED: levETIRAcetam 500 MG TAB PO SCH (21:00)
[2020-03-23] MEDS: APIXABAN 5 MG TAB PO SCH (21:13)
--- NOTE | 2020-03-23 21:23 | P.HPIM ---
History of Present Illness H&P Date: 03/23/20 Chief Complaint: FAll Patient is a 70-year-old male with a known history of brain tumor status post chemoradiation surgery on the right side, recently diagnosed DVT in the right popliteal vein about 5 months ago, hyperlipidemia and glaucoma presents to ER status post fall. Patient states that he fell from the bed last night. Apparently patient was going to the bathroom and his heard a crash and patient yelled for help. Patient was found on the ground with a laceration on the forehead and also bruising on the hands and feet. Patient otherwise denied any loss of consciousness. Denies any dizziness or lightheadedness. No chest pain or shortness of. Patient states that he fell accidentally. No fever no chills. No cough or sputum production. CT head and cervical spine showed no subluxation. Superior endplate compression fracture of T3 with about 15% loss in height. Suspected superior endplate compression fracture of T2 and T4 with minimal loss of height. T4 vertebral body is partially misaligned. Chest x-ray showed chronic changes and cardiomegaly with new patchy lateral left basal acute atelectasis or infiltrate. EKG showed sinus bradycardia with heart rate 49 Laboratory data showed sodium 133, potassium 3.3, BUN 18 and creatinine 0.54, alk phos 37 CPK 44 proBNP 48 and UA is negative WBC 9.1 hemoglobin 13.6 Blood pressure was 180/90 with pulse of 60 and pulse ox 98 on admission. Review of Systems Constitutional: Patient denies any fever or chills . No generalized weakness or weight loss. Abdomen: Patient denied nausea vomiting and diarrhea and abdominal pain. Cardiovascular: Patient denies any chest pain or short of breath no palpitations. Respiratory: patient denied any cough or sputum production. No shortness of breath Neurologic: Patient denied any numbness or tingling headache. Musculoskeletal: Patient denies any complaints of joint swelling or deformity. back pain Skin: bruises Psychiatric: Negative Endocrine: No heat or cold intolerance. No recent weight gain. Genitourinary: No dysuria or hematuria. All other 14 point ROS negative except the above Past Medical History Past Medical History: Eye Disorder, Hyperlipidemia Additional Past Medical History / Comment(s): glaucoma, brain tumor History of Any Multi-Drug Resistant Organisms: None Reported Past Surgical History: No Surgical Hx Reported Additional Past Surgical History / Comment(s): Colonoscopies; Feet / toenails & cyst off foot; eye lasix surgery, brain surgery for R sided tumor Past Anesthesia/Blood Transfusion Reactions: No Reported Reaction Past Psychological History: No Psychological Hx Reported Smoking Status: Never smoker Past Alcohol Use History: None Reported Past Drug Use History: None Reported - Past Family History Mother Family Medical History: Cancer Additional Family Medical History / Comment(s): Colon Cancer Medications and Allergies Home Medications Medication Instructions Recorded Confirmed Type Atorvastatin [Lipitor] 20 mg PO HS 12/18/15 03/23/20 History Latanoprost/Pf [Latanoprost 0.005% 1 drop BOTH EYES HS 10/31/17 03/23/20 History Eye Drop] Apixaban [Eliquis] 5 mg PO BID 02/27/20 03/23/20 History Diclofenac Sodium Gel [Voltaren 2 gm TOPICAL DAILY PRN 02/27/20 03/23/20 History Gel] Lidocaine-Prilocaine Cream [Emla 1 applic TOPICAL DAILY PRN 02/27/20 03/23/20 History Cream 2.5%/2.5%] Omeprazole 20 mg PO AC-BRKFST 02/27/20 03/23/20 History Sulfamethox-Tmp 800-160Mg [Bactrim 1 tab PO MOWEFR 02/27/20 03/23/20 History DS 800-160 mg] Zolpidem [Ambien] 5 mg PO HS 02/27/20 03/23/20 History dexAMETHasone [Dexamethasone] 2 mg PO DAILY 02/27/20 03/23/20 History levETIRAcetam [Keppra] 1,000 mg PO HS 02/27/20 03/23/20 History levETIRAcetam [Keppra] 500 mg PO DAILY 02/27/20 03/23/20 History Avastin 1 dose IV Q14D 03/23/20 03/23/20 History Celecoxib [CeleBREX] 200 mg PO DAILY 03/23/20 03/23/20 History Ondansetron Odt [Zofran Odt] 8 mg PO Q8HR PRN 03/23/20 03/23/20 History valACYclovir HCL [Valtrex] 1,000 mg PO DAILY PRN 03/23/20 03/23/20 History Allergies Allergy/AdvReac Type Severity Reaction Status Date / Time venom-honey bee Allergy Swelling Verified 03/23/20 06:57 [bee venom (honey bee)] Physical Exam Vitals: Vital Signs Temp Pulse Resp BP Pulse Ox 03/23/20 06:32 50 L 18 179/91 99 03/23/20 05:03 98.8 F 60 19 180/90 98 Intake and Output 03/22/20 03/23/20 03/23/20 22:59 06:59 14:59 Other: Weight 83.461 kg PHYSICAL EXAMINATION: Patient is lying in the bed comfortably, no acute distress, awake alert and oriented.. HEENT: Normocephalic. Neck is supple. Pupils reactive. Nostrils clear. Oral cavity is moist. Ears reveal no drainage. Neck reveals no JVD, carotid bruits, or thyromegaly. CHEST EXAMINATION: Trachea is central. Symmetrical expansion. Bibasilar diminished air entry. No wheezing.. CARDIAC: Normal S1, S2 with no gallops. No murmurs ABDOMEN: Soft. Bowel sounds normal. No organomegaly. No abdominal bruits. Extremities: reveal no edema. No clubbing or cyanosis Neurologically awake, alert, oriented x3 with well-coordinated movements. No focal deficits noted Skin: Patient does have laceration on the forehead and multiple bruising spots es on the skin.. Psychiatric: Coperative. Nonsuicidal Musculoskeletal: No joint swelling or deformity. Normal range of motion. Results CBC & Chem 7: 03/23/20 07:16 03/23/20 07:16 Labs: Abnormal Lab Results - Last 24 Hours (Table) 03/23/20 03/23/20 03/23/20 Range/Units 07:16 07:16 09:48 RBC 4.12 L (4.30-5.90) m/uL Plt Count 104 L (150-450) k/uL Potassium 3.3 L (3.5-5.1) mmol/L Creatinine 0.54 L (0.66-1.25) mg/dL Glucose 107 H (74-99) mg/dL Alkaline Phosphatase 37 L (38-126) U/L Creatine Kinase 44 L (55-170) U/L Total Protein 5.8 L (6.3-8.2) g/dL Urine Protein Trace H (Negative) Thrombosis Risk Factor Assmnt - DVT/VTE Prophylaxis DVT/VTE Prophylaxis: Pharmacologic Prophylaxis ordered Assessment and Plan Assessment: Status post mechanical fall and laceration on her forehead with multiple bruising spots on the body. Compression fracture of T3 with 15% loss in height. Hypokalemia. Replaced. Recent history of DVT currently on Eliquis Brain tumor status post chemoradiation and right sided surgery.On seizure prophylaxis. Hyperlipidemia Glaucoma GI and DVT prophylaxis Plan: Patient will continue on pain management. Incentive spirometry. No evidence of bleeding noted in the CT of the abdomen. Continue with home medications including Eliquis. Continue with seizure prophylaxis with Keppra as per his home regimen. PT OT will be consulted. Discussed with his at bedside in detail. Further recommendations based on the clinical course. Time with Patient: Greater than 30
[2020-03-24] MEDS: MORPHINE SULFATE 4 MG/ML SYRINGE IV PRN (03:41)
[2020-03-24 06:14] LABS: Basophils % (A) 0 %; Eosinophils % (A) 0 %; HCT 37.9 % (39.0-53.0); HGB 13.2 gm/dL (13.0-17.5); Lymphocytes # (A) 0.7 k/uL (1.0-4.8); Lymphocytes % (A) 15 %; MCH 33.8 pg (25.0-35.0); MCHC 34.8 g/dL (31.0-37.0); Mean Platelet Volume 7.4; Monocytes # (A) 0.3 k/uL (0-1.0); Monocytes % (A) 6 %; Neutrophils # (A) 3.9 k/uL (1.3-7.7); Neutrophils % (A) 78 %; RBC 3.91 m/uL (4.30-5.90); RDW 15.1 % (11.5-15.5)
[2020-03-24 06:57] LABS: Platelet Count 81 k/uL (150-450)
[2020-03-24 07:41] VITALS: BP 165/98; PULSE 92; RESP 18; TEMP 97.6
[2020-03-24] MEDS: APIXABAN 5 MG TAB PO SCH (07:54)
[2020-03-24] MEDS: levETIRAcetam 500 MG TAB PO SCH (07:54)
[2020-03-24] MEDS: PANTOPRAZOLE 40 MG TABLET PO SCH (07:54)
[2020-03-24 10:22] LABS: African American GFR (CKD) 119.7 (60.0-200.0); Anion Gap 5.9 mmol/L (4.00-12.00); BUN/Creat Ratio 18.33 Ratio (12.00-20.00); Calcium 8.7 mg/dL (8.7-10.3); Carbon Dioxide 29.1 mmol/L (21.6-31.8); Non-African American GFR(CKD) 103.3 (60.0-200.0); Potassium 4.1 mmol/L (3.5-5.5)
== END 2020-03-24 13:44 | disposition home health service (06) ==
LOC: EC 04:52 → 1SOBS 07:02 → 4SSUR 17:49
PROVIDERS: ADMIT Hospitalist; ATTEND Hospitalist
DX: S01.01XA Laceration without foreign body of scalp, initial encounter (principal); M48.54XA Collapsed vertebra, not elsewhere classified, thoracic region, initial encounter for fracture; S60.222A Contusion of left hand, initial encounter; S60.221A Contusion of right hand, initial encounter; S90.32XA Contusion of left foot, initial encounter; S90.31XA Contusion of right foot, initial encounter; S23.13 Subluxation and dislocation of T4/T5-T5/T6 thoracic vertebra; E87.6 Hypokalemia; R00.1 Bradycardia, unspecified; H40.9 Unspecified glaucoma; E78.5 Hyperlipidemia, unspecified; Z79.01 Long term (current) use of anticoagulants; Z79.899 Other long term (current) drug therapy; Z79.1 Long term (current) use of non-steroidal anti-inflammatories (NSAID); Z79.52 Long term (current) use of systemic steroids; Z91.030 Bee allergy status; Z86.03 Personal history of neoplasm of uncertain behavior; Z98.890 Other specified postprocedural states; Z92.21 Personal history of antineoplastic chemotherapy; Z92.3 Personal history of irradiation; Z86.718 Personal history of other venous thrombosis and embolism; Z80.0 Family history of malignant neoplasm of digestive organs; W06.XXXA Fall from bed, initial encounter; Y92.019 Unspecified place in single-family (private) house as the place of occurrence of the external cause
CPT/HCPCS: 96376 ×2; 96374; 96375 ×2; 12002; 96361; 96372; 99285; 36415; 93005; 97162; 97166; 83880; 80053; 80048; 80177; 82550; 83735; 84100; 84484; 85025 ×2; 81003; 71045; 72125; 70450; G0378 ×2; J2060; J2270 ×2; J8540; J1642

== ENCOUNTER 2020-06-10 21:16 | Inpatient (IN) | payer MEDICARE ==
[2020-06-10] MEDS ORDERED: LORazepam 2 MG/ML INJ IV STA ×3 (21:32→22:41)
[2020-06-10] MEDS ORDERED: SODIUM CHLORIDE 0.9% 1,000 ML IV STA ×3 (21:33→22:49)
[2020-06-10 21:40] LABS: Glucose,Whole Blood 102 mg/dL (75-99)
[2020-06-10] MEDS ORDERED: levETIRAcetam IV 1,000 MG in SALINE 1 100ML.BAG IVPB ONE (21:45)
[2020-06-10 22:09] LABS: Basophils # (A) 0.1 k/uL (0-0.2); Basophils % (A) 1 %; Eosinophils # (A) 0.1 k/uL (0-0.7); Eosinophils % (A) 1 %; HCT 45.3 % (39.0-53.0); HGB 15.8 gm/dL (13.0-17.5); Lymphocytes # (A) 2.7 k/uL (1.0-4.8); Lymphocytes % (A) 27 %; MCH 35.8 pg (25.0-35.0); MCHC 34.9 g/dL (31.0-37.0); MCV 102.7 fL (80.0-100.0); Macrocytosis Slight; Mean Platelet Volume 7.2; Monocytes # (A) 0.7 k/uL (0-1.0); Monocytes % (A) 7 %; Neutrophils # (A) 6.4 k/uL (1.3-7.7); Neutrophils % (A) 64 %; Platelet Count 162 k/uL (150-450); RBC 4.42 m/uL (4.30-5.90); RDW 14.6 % (11.5-15.5)
--- NOTE | 2020-06-10 22:15 | ED ---
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 He was given Valium at home to have milligrams 2 brought in for evaluation the scene was stopped and then after arrival here they did recur. Patient is awake and talking during the seizure activity the right side is not affected. He denies any falls fevers chills headache nausea vomiting or other symptoms. He did take his Keppra today. No other complaints or modifying factors at this time. MD Complaint: seizure - Related Data Home Medications Medication Instructions Recorded Confirmed Atorvastatin [Lipitor] 20 mg PO HS 12/18/15 06/10/20 Latanoprost/Pf [Latanoprost 0.005% 1 drop BOTH EYES HS 10/31/17 06/10/20 Eye Drop] Diclofenac Sodium Gel [Voltaren 2 gm TOPICAL DAILY PRN 02/27/20 06/10/20 Gel] Lidocaine-Prilocaine Cream [Emla 1 applic TOPICAL DAILY PRN 02/27/20 06/10/20 Cream 2.5%/2.5%] Omeprazole 20 mg PO AC-BRKFST 02/27/20 06/10/20 Sulfamethox-Tmp 800-160Mg [Bactrim 1 tab PO MOWEFR 02/27/20 06/10/20 DS 800-160 mg] Zolpidem [Ambien] 5 mg PO HS 02/27/20 06/10/20 dexAMETHasone [Dexamethasone] 1 mg PO Q48H 02/27/20 06/10/20 levETIRAcetam [Keppra] 1,000 mg PO BID 02/27/20 06/10/20 dexAMETHasone [Dexamethasone] 2 mg PO Q48H 06/10/20 06/10/20 Allergies Allergy/AdvReac Type Severity Reaction Status Date / Time venom-honey bee Allergy Swelling Verified 06/10/20 22:55 [bee venom (honey bee)] Review of Systems ROS Statement: Those systems with pertinent positive or pertinent negative responses have been documented in the HPI. ROS Other: All systems not noted in ROS Statement are negative. Past Medical History Past Medical History: Eye Disorder, Hyperlipidemia, Seizure Disorder Additional Past Medical History / Comment(s): glaucoma, brain tumor History of Any Multi-Drug Resistant Organisms: None Reported Past Surgical History: No Surgical Hx Reported Additional Past Surgical History / Comment(s): Colonoscopies; Feet / toenails & cyst off foot; eye lasix surgery, brain surgery for R sided tumor Past Anesthesia/Blood Transfusion Reactions: No Reported Reaction Past Psychological History: No Psychological Hx Reported Smoking Status: Never smoker Past Alcohol Use History: None Reported Past Drug Use History: None Reported - Past Family History Mother Family Medical History: Cancer Additional Family Medical History / Comment(s): Colon Cancer General Exam - General Exam Comments Initial Comments: This a well-developed well-nourished awake and alert male who on my exam was noted to be demonstrating a left partial seizure with left lateral gaze. There was evidence of incontinence however no evidence of any tongue biting. Limitations: no limitations General appearance: alert, anxious, in distress Head exam: Present: atraumatic, normocephalic, normal inspection Eye exam: Present: other (Left lateral gaze). Absent: scleral icterus, conjunctival injection, periorbital swelling ENT exam: Present: normal exam, mucous membranes moist Neck exam: Present: normal inspection. Absent: tenderness, meningismus, lymphadenopathy Respiratory exam: Present: normal lung sounds bilaterally. Absent: respiratory distress, wheezes, rales, rhonchi, stridor Cardiovascular Exam: Present: normal rhythm, tachycardia, normal heart sounds. Absent: systolic murmur, diastolic murmur, rubs, gallop, clicks GI/Abdominal exam: Present: soft, normal bowel sounds. Absent: distended, tenderness, guarding, rebound, rigid Extremities exam: Present: full ROM, normal capillary refill, other. Absent: tenderness, pedal edema, joint swelling, calf tenderness Back exam: Present: normal inspection Neurological exam: Present: alert, oriented X3, CN II-XII intact Psychiatric exam: Present: normal affect, normal mood Skin exam: Present: warm, dry, intact, normal color. Absent: rash Course Vital Signs 06/10/20 06/10/20 21:19 22:54 Temperature 97.6 F Pulse Rate 138 H 116 H Respiratory 18 18 Rate Blood Pressure 129/90 O2 Sat by Pulse 96 96 Oximetry - Reevaluation(s) Reevaluation #1: 06/10/20 23:11 Patient was reevaluated noted to still be in a seizure left side. He'll require further medication. Patient's is presently did discuss the situation. 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 Reevaluation #2: 06/10/20 23:11 Patient did resolve his seizures no further evidence of activity patient was Reevaluation #3: 06/10/20 23:34 Patient is awake and alert this time Medical Decision Making - Medical Decision Making I did discuss findings with patient family as well as Dr. wells the patient be admitted with consultation by neurology. Elevated lactic acid on the basis of dehydration and seizure activity - Lab Data Result diagrams: 06/10/20 21:43 06/10/20 21:43 Lab Results 06/10/20 06/10/20 06/10/20 Range/Units 21:31 21:43 21:43 WBC 10.0 (3.8-10.6) k/uL RBC 4.42 (4.30-5.90) m/uL Hgb 15.8 (13.0-17.5) gm/dL Hct 45.3 (39.0-53.0) % MCV 102.7 H (80.0-100.0) fL MCH 35.8 H (25.0-35.0) pg MCHC 34.9 (31.0-37.0) g/dL RDW 14.6 (11.5-15.5) % Plt Count 162 (150-450) k/uL MPV 7.2 Neutrophils % 64 % Lymphocytes % 27 % Monocytes % 7 % Eosinophils % 1 % Basophils % 1 % Neutrophils # 6.4 (1.3-7.7) k/uL Lymphocytes # 2.7 (1.0-4.8) k/uL Monocytes # 0.7 (0-1.0) k/uL Eosinophils # 0.1 (0-0.7) k/uL Basophils # 0.1 (0-0.2) k/uL Macrocytosis Slight Sodium 138 (137-145) mmol/L Potassium 5.0 (3.5-5.1) mmol/L Chloride 103 (98-107) mmol/L Carbon Dioxide 21 L (22-30) mmol/L Anion Gap 14 mmol/L BUN 21 H (9-20) mg/dL Creatinine 0.78 (0.66-1.25) mg/dL Est GFR (CKD-EPI)AfAm >90 (>60 ml/min/1.73 sqM) Est GFR (CKD-EPI)NonAf >90 (>60 ml/min/1.73 sqM) Glucose 102 H (74-99) mg/dL POC Glucose (mg/dL) 102 H (75-99) mg/dL POC Glu Career Technical Counselor ID Chew, [place] Plasma Lactic Acid Leo (0.7-2.0) mmol/L Calcium 9.6 (8.4-10.2) mg/dL Magnesium 1.9 (1.6-2.3) mg/dL Total Bilirubin 1.0 (0.2-1.3) mg/dL AST 37 (17-59) U/L ALT 51 H (4-49) U/L Alkaline Phosphatase 37 L (38-126) U/L Creatine Kinase 24 L (55-170) U/L Total Protein 7.0 (6.3-8.2) g/dL Albumin 4.7 (3.5-5.0) g/dL TSH 1.300 (0.465-4.680) mIU/L Serum Alcohol <10 mg/dL 06/10/20 Range/Units 21:43 WBC (3.8-10.6) k/uL RBC (4.30-5.90) m/uL Hgb (13.0-17.5) gm/dL Hct (39.0-53.0) % MCV (80.0-100.0) fL MCH (25.0-35.0) pg MCHC (31.0-37.0) g/dL RDW (11.5-15.5) % Plt Count (150-450) k/uL MPV Neutrophils % % Lymphocytes % % Monocytes % % Eosinophils % % Basophils % % Neutrophils # (1.3-7.7) k/uL Lymphocytes # (1.0-4.8) k/uL Monocytes # (0-1.0) k/uL Eosinophils # (0-0.7) k/uL Basophils # (0-0.2) k/uL Macrocytosis Sodium (137-145) mmol/L Potassium (3.5-5.1) mmol/L Chloride (98-107) mmol/L Carbon Dioxide (22-30) mmol/L Anion Gap mmol/L BUN (9-20) mg/dL Creatinine (0.66-1.25) mg/dL Est GFR (CKD-EPI)AfAm (>60 ml/min/1.73 sqM) Est GFR (CKD-EPI)NonAf (>60 ml/min/1.73 sqM) Glucose (74-99) mg/dL POC Glucose (mg/dL) (75-99) mg/dL POC Glu Career Technical Counselor ID Plasma Lactic Acid Leo 6.6 H* (0.7-2.0) mmol/L Calcium (8.4-10.2) mg/dL Magnesium (1.6-2.3) mg/dL Total Bilirubin (0.2-1.3) mg/dL AST (17-59) U/L ALT (4-49) U/L Alkaline Phosphatase (38-126) U/L Creatine Kinase (55-170) U/L Total Protein (6.3-8.2) g/dL Albumin (3.5-5.0) g/dL TSH (0.465-4.680) mIU/L Serum Alcohol mg/dL - EKG Data -: EKG Interpreted by Me EKG Comments: Says tachycardia rate of 114. Interval 174 QRS duration 98 daily since QTC 320/[address]-T wave changes - Radiology Data Radiology results: report reviewed (Imaging reviewed as well as report no acute changes when compared to one dated in March of this year.), image reviewed Critical Care Time Critical Care Time: Yes Total Critical Care Time: 37 Critical Care Time: Critical care time includes initial presentation with patient evaluation history physical labs imaging discussed with paramedics. Multiple reevaluation the patient discussed with the patient family review of old charting was available discussion with the admitting physician admission orders and documentation of the above Disposition Clinical Impression: Status epilepticus, Focal motor seizure, Dehydration, Lactic acidosis Disposition: ADMITTED IP TO THIS [facility] Condition: Fair Referrals: Dennis Salcido MD [Primary Care Provider] - 1-2 days
[2020-06-10 22:22] LABS: ALT 51 U/L (4-49); AST 37 U/L (17-59); African American GFR (CKD) >90 (>60 ml/min/1.73 sqM); Albumin 4.7 g/dL (3.5-5.0); Alcohol <10 mg/dL; Alkaline Phosphatase 37 U/L (38-126); Anion Gap 14 mmol/L; Blood Urea Nitrogen 21 mg/dL (9-20); Calcium 9.6 mg/dL (8.4-10.2); Carbon Dioxide 21 mmol/L (22-30); Chloride 103 mmol/L (98-107); Creatine Kinase 24 U/L (55-170); Glucose 102 mg/dL (74-99); Magnesium 1.9 mg/dL (1.6-2.3); Non-African American GFR(CKD) >90 (>60 ml/min/1.73 sqM); Sodium 138 mmol/L (137-145)
--- NOTE | 2020-06-10 23:25 | CT ---
EXAMINATION TYPE: CT brain wo con DATE OF EXAM: 06/10/2020 COMPARISON: 03/23/2020 HISTORY: seizure CT DLP: 1118.4 mGycm Automated exposure control for dose reduction was used. There is right parietal craniotomy defect. There is mixed density in the right posterior parietal lob e with white matter hypodensity and some calcification. This is consistent with encephalomalacia and postsurgical changes. Area of calcification measures 2.7 cm. Ventricles have fairly normal size. Ther e is no mass effect nor midline shift. There is no sign of intracranial hemorrhage. IMPRESSION: Encephalomalacia right parietal lobe with previous surgery. Right parietal mild white matter edema. C erebral parenchymal calcification could be residual of tumor. No significant change compared to old e xam.
[2020-06-10] MEDS ORDERED: NALOXONE 0.4 MG/ML 1 ML VIAL IV PRN (23:37)
[2020-06-10] MEDS ORDERED: ACETAMINOPHEN TAB 325 MG TAB PO PRN (23:37)
[2020-06-10] MEDS ORDERED: LIDOCAINE-PRILOCAINE 2.5-2.5% CREAM 5 GM TUBE TOPICAL PRN (23:38)
[2020-06-11] MEDS ORDERED: hydrALAZINE HCL 25 MG TAB PO STA (02:34)
[2020-06-11] MEDS: dexAMETHasone 2 MG TAB PO SCH (07:56)
[2020-06-11] MEDS: PANTOPRAZOLE 40 MG TABLET PO SCH (07:56)
[2020-06-11] MEDS ORDERED: levETIRAcetam 500 MG TAB PO STA (08:11)
--- NOTE | 2020-06-11 08:37 | P.CNNES ---
History of Present Illness Consult date: 06/11/20 Requesting physician: Harsha Yeboah Reason for Consult: seizure History of Present Illness: This is a 70-year-old gentleman with medical history of brain mass (GBM) status post resection (2018), focal epilepsy that presented to the emergency department on 06/10/2020 for seizure. Some of the history is obtained by medical records and patient's nurse as well his (Margaret) since patient unable to provide all the history. Patient stated he was has jerking of his left side and that presented him to the hospital. Per the patient starting at 8pm he started shaking of the left foot that worked it wake-up to entire left lower extremity then upper extremity. Patient did not lose consciousness. The episode was p eristent even though he was given 5mg of Valium (2.5mg of each). He denies of any urinary or bowel incontinence or tongue bite. Patient has been compliant with medication. Per ED note he has left gaze deviation and per the patient's nurse he had [id number] seizure but unsure of duration. Per the patient he did not having shaking of the right side (since was at bide) and stated the entire seizure episode lasted few hours. Per the patient nurse he has no seizure since being on the floor (close to mid-night). As a result in the ED the patient was given 1000 mg of Keppra once. Since the patient received a total of 6 mg of Ativan in the ED as result of his seizure. Patient home medication is Keppra 1000 mg 1 tablet twice a day. Patient is also on dexamethasone 1 mg and 2mg every 48 hours and due to his brain mass status post resection. He follows-up with Dr. Osvaldo Palmer (Neurologist over at [facility]) and his Oncologist (Dr. Iris Randolph) is also over at [facility]. He said he had MRI Brain last week and has seen his neurologist in May but unsure of results. Regarding his seizure they are focal, localized to the left side of body but denies any urinary or bowel incontinence or tongue bite. Denies any aura. As stated above they start with shaking of the left leg then work it way up to left side of body. per patient's he has not had any seizure prior to GBM. 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 Workup in our facility consisted of: Initial vital signs: Initial blood pressure is 129/90, heart rate of 116, respiratory of 18, temperature of 97.6 Fahrenheit oral and pulse ox of 96% on 2 L of nasal cannula CT of the head is reported as encephalomalacia over the right parietal lobe with previous surgery. Right parietal mild white matter edema. Cerebral parenchymal calcification could be residual tumor. No significant change compared to old exam. EKG is reported as sinus tachycardia. Otherwise normal EKG. Initial white blood cell is 10.0 which is normal. MCV is 102.7 which is elevated. Review of Systems Review of system: The 12 point system was reviewed and apparent positive and negative per HPI. Past Medical History Past Medical History: Deep Vein Thrombosis (DVT), Eye Disorder, Hyperlipidemia, Seizure Disorder Additional Past Medical History / Comment(s): glaucoma, brain tumor History of Any Multi-Drug Resistant Organisms: None Reported Past Surgical History: No Surgical Hx Reported Additional Past Surgical History / Comment(s): Colonoscopies; Feet / toenails & cyst off foot; eye lasix surgery, brain surgery for R sided tumor Past Anesthesia/Blood Transfusion Reactions: No Reported Reaction Past Psychological History: Anxiety Smoking Status: Current some day smoker Past Alcohol Use History: Occasional Additional Past Alcohol Use History / Comment(s): has smoked cigars off and on over the years 1-2 per week Past Drug Use History: None Reported - Past Family History Mother Family Medical History: Cancer Additional Family Medical History / Comment(s): Colon Cancer Medications and Allergies Home Medications Medication Instructions Recorded Confirmed Type Atorvastatin [Lipitor] 20 mg PO HS 12/18/15 06/10/20 History Latanoprost/Pf [Latanoprost 0.005% 1 drop BOTH EYES HS 10/31/17 06/10/20 History Eye Drop] Diclofenac Sodium Gel [Voltaren 2 gm TOPICAL DAILY PRN 02/27/20 06/10/20 History Gel] Lidocaine-Prilocaine Cream [Emla 1 applic TOPICAL DAILY PRN 02/27/20 06/10/20 H istory Cream 2.5%/2.5%] Omeprazole 20 mg PO AC-BRKFST 02/27/20 06/10/20 History Sulfamethox-Tmp 800-160Mg [Bactrim 1 tab PO MOWEFR 02/27/20 06/10/20 History DS 800-160 mg] Zolpidem [Ambien] 5 mg PO HS 02/27/20 06/10/20 History dexAMETHasone [Dexamethasone] 1 mg PO Q48H 02/27/20 06/10/20 History levETIRAcetam [Keppra] 1,000 mg PO BID 02/27/20 06/10/20 History dexAMETHasone [Dexamethasone] 2 mg PO Q48H 06/10/20 06/10/20 History Allergies Allergy/AdvReac Type Severity Reaction Status Date / Time venom-honey bee Allergy Swelling Verified 06/10/20 22:55 [bee venom (honey bee)] Physical Examination - Vital Signs Vital Signs: Vital Signs Temp Pulse Pulse Resp BP BP Pulse Ox 06/11/20 04:45 97.6 F 101 H 17 155/92 96 06/11/20 01:40 97.6 F 92 18 175/98 94 L 06/11/20 00:32 97.4 F L 95 18 147/95 100 06/10/20 22:54 116 H 18 129/90 96 06/10/20 21:19 97.6 F 138 H 18 96 Intake and Output 06/10/20 06/11/20 06/11/20 22:59 06:59 14:59 Output Total 50 Balance -50 Output: Urine 50 Other: Voiding Method Urinal Weight 86.636 kg 86.636 kg GENERAL: The patient is lying in bed and is not in acute distress. CHEST: The heart rate is regular rate rhythm. No murmurs to auscultation. No carotid bruit bilaterally. LUNG: Clear to auscultation bilaterally no wheezing noted throughout. Not labored breathing. ABDOMEN/GI: Bowel sounds present in all 4 quadrants. No tenderness to palpation throughout. NEUROLOGICAL: Higher mental function: The patient is awake, alert, oriented to self, place and time. Patient is following commands. No aphasia and no neglect. Cranial nerves: The pupils are round, equal and reactive to light and accommodation. Visual nobles: left homonymous hemianopsia due to confrontation. Extraocular movement is intact no nystagmus is noted. Facial sensation is normal to touch throughout. The facial strength is mild left nasolabial flattening. Hearing is mild decreased bilaterally to hand rub. Tongue is midline and moved [id number] without any difficulty. No dysarthria is noted. Motor: Gait is deferred. The strength is no movement is noted over the left upper extremity, hand has left wrist drop. While left lower extremity is able to lift above gravity (chronic). Otherwise 5 over 5 over the entire right. Increase tone over the left side (more over the left upper extremity then lower) . No spontaneous movement. Cerebellum: Normal finger to nose over the right but could not assess left because of condition. Sensation: Sensation is normal to touch throughout. Reflexes (right/left): Brisk reflex over the left lower. Had hard time assessing left upper because of his position. Otherwise 2+. Plantars is upgoing over the left and mute over the right. Results The sodium is 138 which is normal. Initial POC glucose is 102. AST of 37 and ALT of 51 ALT slightly elevated. TSH is 1.30 which is considered normal. Serum alcohol level was less than 10. Ruggiero virus is not detected. - Laboratory Findings CBC and BMP: 06/10/20 21:43 06/10/20 21:43 Abnormal Lab Findings: Abnormal Labs 06/10/20 06/10/20 06/10/20 21:31 21:43 21:43 MCV 102.7 H MCH 35.8 H Carbon Dioxide 21 L BUN 21 H Glucose 102 H POC Glucose (mg/dL) 102 H Plasma Lactic Acid Leo ALT 51 H Alkaline Phosphatase 37 L Creatine Kinase 24 L 06/10/20 21:43 MCV MCH Carbon Dioxide BUN Glucose POC Glucose (mg/dL) Plasma Lactic Acid Leo 6.6 H* ALT Alkaline Phosphatase Creatine Kinase Assessment and Plan Assessment: This is a 70-year-old gentleman with history of GBM over right parietal status post resection (2018) with focal epilepsy that presented to the emergency department on 06/10/2020 for prolonge seizure over the left side. 1. 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 History of right GBM parietal mass status post resection (2018) 4. Vasogenic edema over the right parietal region due to #3 5. Focal Epilepsy due to #3 6. Left hemiparesis due to above #3 7. Macrocytosis Plan: A Keppra level was not ordered on initial presentation. I will not get it since the patient was loaded on Keppra and was restarted on his Keppra medication so getting level would not be accurate. Patient was restarted on his Keppra 1000 mg 1 tablet twice a day. I increased the Keppra to 1500mg 1 tab bid. There is no need for EEG since the patient is known to have epilepsy and is currently back to baseline. Continue every 4 hours neuro checks. Patient was started on dexamethasone 1 mg by mouth every 48 hours and also in the dexamethasone 2 mg every 48 hours by ED. Patient is on seizure precaution and that's to be continued as well as seizure pads is ordered. Regarding the macrocytosis I ordered vitamin B12, folate level as well as methylmalonic acid. If the patient continues to be seizure free withing 24 hours and weakness resolves then he is clear from neurology side. The patient needs to follow-up with his Neurologist (Dr. Osvaldo Palmer) within 1-2 weeks. Also continue to follow-up with his Oncologist (Dr. Iris Randolph). The plan is discussed with the patient and his (Margaret via phone). Thank you for the consultation. Aditya Huber M.D. Neuro-hospitalist Time with Patient: Greater than 30
[2020-06-11] MEDS ORDERED: levETIRAcetam 500 MG TAB PO SCH (09:00)
[2020-06-11] MEDS ORDERED: DICLOFENAC SODIUM GEL 100 GM TUBE TOPICAL PRN (09:00)
[2020-06-11] MEDS ORDERED: ALPRAZolam 0.25 MG TAB PO PRN (16:01)
[2020-06-11] MEDS ORDERED: HYDROcodone/APAP 5-325MG 1 EACH TAB PO PRN (16:01)
[2020-06-11 17:23] LABS: Prothrombin Time 10.5 sec (9.0-12.0)
[2020-06-11 17:38] LABS: Folate, Serum 19.4 ng/mL
[2020-06-11 18:07] LABS: ALT 44 U/L (4-49); AST 24 U/L (17-59); African American GFR (CKD) >90 (>60 ml/min/1.73 sqM); Albumin 3.7 g/dL (3.5-5.0); Albumin/Globulin Ratio 1.8; Alkaline Phosphatase 32 U/L (38-126); Anion Gap 5 mmol/L; Blood Urea Nitrogen 11 mg/dL (9-20); Carbon Dioxide 29 mmol/L (22-30); Chloride 105 mmol/L (98-107); Globulin 2.1 g/dL; Glucose 121 mg/dL (74-99); Non-African American GFR(CKD) >90 (>60 ml/min/1.73 sqM); Potassium 4.2 mmol/L (3.5-5.1); Sodium 139 mmol/L (137-145); Total Bilirubin 0.8 mg/dL (0.2-1.3); Total Protein 5.8 g/dL (6.3-8.2)
[2020-06-11 18:55] LABS: Appearance,Urine Clear (Clear); Bilirubin,Urine Negative (Negative); Blood,Urine Negative (Negative); Color,Urine Light Yellow; Glucose,Urine (UA) Negative (Negative); Ketones,Urine Negative (Negative); Leukocyte Esterase,Urine Negative (Negative); Nitrite,Urine Negative (Negative); PH, Urine 6.5 (5.0-8.0); Protein,Urine Negative (Negative); Specific Gravity,Urine 1.014 (1.001-1.035); Urobilinogen,Urine <2.0 mg/dL (<2.0)
[2020-06-11 19:05] LABS: Amphetamine Screen,Urine Not Detected (NotDetected); Barbiturate Screen,Urine Not Detected (NotDetected); Benzodiazepines Screen,Urine Detected (NotDetected); Cocaine Screen,Urine Not Detected (NotDetected); Methadone Screen, Urine Not Detected (NotDetected); Opiate Screen,Urine Not Detected (NotDetected); Oxycodone Screen, Urine Not Detected (NotDetected); Phencyclidine Screen,Urine Not Detected (NotDetected); Tricyclic Antidepressant,Urine Not Detected (NotDetected); Urn Cannabinoid Scrn Not Detected (NotDetected)
--- NOTE | 2020-06-11 20:07 | HP ---
HISTORY AND PHYSICAL I am covering for Dr. Dennis Salciod CHIEF COMPLAINT: Seizure disorder. HISTORY OF PRESENT ILLNESS: This 70-year-old gentleman with a past history of DVT, history of hyperlipidemia, history of seizure disorder, history of glaucoma, history of brain tumor, had surgery and resection of the right parietal mass. The patient apparently had seizures of the left upper limb and the patient also had conjugated deviation also. The patient was taken to [facility] and was admitted for further evaluation and treatment. Neurology, Dr. Huber has seen the patient and recommended Keppra 1500 mg b.i.d. and the patient being closely monitored at this time. There is no history of fever and rigors or chills at this time. The patient is also on blood thinners secondary to DVT and the patient also developed purpuric rash. PAST MEDICAL HISTORY: 1. History of deep vein thrombosis. 2. History of right cerebral tumor. 3. Mass. 4. Hyperlipidemia. 5. Seizure disorder. 6. Glaucoma. MEDICATIONS: Prior to admission include home medications are: Keppra, Dexamethasone, Ambien, Bactrim, EMLA cream, Latanoprost, Voltaren, Lipitor. ALLERGIES: HONEY BEE. FAMILY HISTORY: History of colon cancer in the family. SOCIAL HISTORY: History of smoking. Occasional alcohol. REVIEW OF SYSTEMS: ENT: As mentioned earlier. CARDIOVASCULAR: No angina. No palpitations. RESPIRATORY system: No cough. GI: As mentioned earlier. : No dysuria. NERVOUS SYSTEM: As mentioned earlier. MUSCULOSKELETAL: As mentioned earlier. HEMATOLOGY/ONCOLOGY: As mentioned earlier. ENDOCRINE: No history of diabetes or hypothyroidism. CONSTITUTIONAL: As mentioned earlier. DERMATOLOGY: Negative. RHEUMATOLOGY negative. PSYCHIATRY as mentioned earlier. PHYSICAL EXAMINATION: Alert and oriented x2. Pulse 82, blood pressure 159/84, respirations 17, temperature 98 degrees, pulse ox 96% on room air. HEENT: Conjunctivae normal. NECK: No JVD. CARDIOVASCULAR: S1, S2 muffled. RESPIRATORY: Breath sounds diminished in the bases. A few scattered rhonchi. ABDOMEN: Soft, nontender. LEGS: No edema. No swelling. NERVOUS SYSTEM: Weakness of the left side present. Eye movements are full in all directions. SKIN: Diffuse purpuric rash present. JOINTS: No active deforming arthropathy. LYMPHATICS: No lymph nodes palpable in the neck, axillae or groin. LABS: MCV 102.7, sodium 130, potassium 5 and glucose 102. Lactic acid 4.6. Alcohol less than 10. ALT alkaline phosphatase 37. ASSESSMENT: 1. Acute focal seizures possibly secondary from the right parietal mass resection. 2. Break through seizures with left focal seizures with secondary generalization. 3. Increased MCV. 4. Increased plasma lactic acidosis secondary to seizure. 5. Increased ALT. 6. Multiple purpuric lesions. 7. History of deep vein thrombosis. 8. History of hyperlipidemia. 9. History of glaucoma. 11.History of anxiety. 12.History of continued ongoing nicotine dependence. 13.FULL CODE. RECOMMENDATIONS AND DISCUSSION: In this 64-year-old gentleman who presented with multiple complex medical issues, we will monitor the patient closely, continue the current medications, management and symptomatic treatment. Continue with Keppra. Repeat labs. Platelets are normal today. I would also recommend PT/OT evaluation as well as PT/INR evaluation also. Prognosis guarded. Further recommendations to follow. MMNELIDAL / IJN: [id number] / MTDLincoln
[2020-06-11] MEDS: ATORVASTATIN 20 MG TAB PO SCH (20:58)
[2020-06-11] MEDS: ZOLPIDEM 5 MG TAB PO SCH (20:58)
[2020-06-11] MEDS: levETIRAcetam 500 MG TAB PO SCH (20:59)
[2020-06-11] MEDS: LATANOPROST 0.005% OPHTH DROPS 2.5 ML BTL BOTH EYES SCH (20:59)
[2020-06-11] MEDS: HEPARIN SODIUM,PORCINE/PF 5,000 UNIT/0.5 ML SYRINGE SQ SCH (20:59)
[2020-06-12] MEDS: HEPARIN SODIUM,PORCINE/PF 5,000 UNIT/0.5 ML SYRINGE SQ SCH ×2 (08:45→21:59)
[2020-06-12] MEDS: PANTOPRAZOLE 40 MG TABLET PO SCH (08:45)
[2020-06-12] MEDS: levETIRAcetam 500 MG TAB PO SCH ×2 (08:46→22:00)
[2020-06-12] MEDS ORDERED: dexAMETHasone 2 MG TAB PO SCH (09:00)
[2020-06-12 09:14] LABS: HCT 39.3 % (39.6-50.0); HGB 12.9 g/dL (13.0-17.0); MCH 34.7 pg (27.0-32.0); MCHC 32.8 g/dL (32.0-37.0); MCV 105.6 fL (80.0-97.0); Mean Platelet Volume 10.1 fL (9.5-12.2); Platelet Count 106 X 10*3/uL (140-440); RBC 3.72 X 10*6/uL (4.40-5.60)
[2020-06-12 09:44] LABS: Basophils # (A) 0.01 X 10*3/uL (0.00-0.10); Basophils % (A) 0.2 %; Eosinophils # (A) 0.02 X 10*3/uL (0.04-0.35); Eosinophils % (A) 0.4 %; Lymphocytes # (A) 1.13 X 10*3/uL (0.90-5.00); Lymphocytes % (A) 23.1 %; Macrocytosis (M) 2+; Monocytes # (A) 0.44 X 10*3/uL (0.20-1.00); Neutrophils # (A) 3.26 X 10*3/uL (1.80-7.70); Neutrophils % (A) 66.5 %
[2020-06-12 10:22] LABS: African American GFR (CKD) 119.7 (60.0-200.0); Calcium 9.3 mg/dL (8.7-10.3); Non-African American GFR(CKD) 103.3 (60.0-200.0); Potassium 3.9 mmol/L (3.5-5.5)
[2020-06-12 10:42] LABS: Anion Gap 6.8 mmol/L (4.00-12.00); Carbon Dioxide 29.2 mmol/L (21.6-31.8)
--- NOTE | 2020-06-12 14:13 | P.PN ---
Subjective Progress Note Date: 06/12/20 Patient was seen at bedside and he stated he doing much better today compared to yesterday. He has more strength over the left side but not back to baseline he feels that he is about 80% strength heaton on the left side that compared to his baseline. Per the patient's and his nurse he has not had any further seizure-like episodes upon seeing them in the morning. He said he might ahead small jerking of lower extremity that was very brief and it was very common otherwise nothing like yesterday or at his previous as seizures. Objective - Vital Signs Vital signs: Vital Signs Temp 97.9 F 06/12/20 11:59 Pulse 77 06/12/20 11:59 Resp 17 06/12/20 11:59 BP 155/93 06/12/20 11:59 Pulse Ox 95 06/12/20 11:59 Intake & Output 06/11/20 06/12/20 06/12/20 18:59 06:59 18:59 Other: Voiding Method Urinal Urinal # Voids 7 4 - Exam GENERAL: The patient is lying in bed and is not in acute distress. NEUROLOGICAL: Higher mental function: The patient is awake, alert, oriented to self, place and time. Patient is following commands. No aphasia and no neglect. Cranial nerves: The pupils are round, equal and reactive to light and accommodation. Visual onbles: left homonymous hemianopsia due to confrontation. Extraocular movement is intact no nystagmus is noted. Facial sensation is normal to touch throughout. The facial strength is mild left nasolabial flattening. Hearing is mild decreased bilaterally to hand rub. Tongue is midline and moved [id number] without any difficulty. No dysarthria is noted. Motor: Gait is deferred. The strength is 4+ over the left upper and lower extremity. Has difficulty with dexterity over the left hand but improving since yesterday. Otherwise 5 over 5 over the entire right. No spontaneous movement. Sensation: Sensation is normal to touch throughout. Reflexes (right/left): Brisk reflex over the left lower. Had hard time assessing left upper because of his position. Otherwise 2+. Plantars is upgoing over the left and mute over the right. - Labs CBC & Chem 7: 06/12/20 05:34 06/12/20 05:34 Labs: Abnormal Lab Results - Last 24 Hours (Table) 06/11/20 06/11/20 06/12/20 Range/Units 16:43 18:14 05:34 RBC 3.72 L (4.40-5.60) X 10*6/uL Hgb 12.9 L (13.0-17.0) g/dL Hct 39.3 L (39.6-50.0) % MCV 105.6 H (80.0-97.0) fL MCH 34.7 H (27.0-32.0) pg Plt Count 106 L (140-440) X 10*3/uL Plt Count Comment DECREASED A Eosinophils # 0.02 L (0.04-0.35) X 10*3/uL Creatinine 0.59 L (0.66-1.25) mg/dL Glucose 121 H (74-99) mg/dL Alkaline Phosphatase 32 L (38-126) U/L Total Protein 5.8 L (6.3-8.2) g/dL U Benzodiazepines Scrn Detected H (NotDetected) Assessment and Plan Assessment: This is a 70-year-old gentleman with 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 1. Break-through seizure (focal seizure) due to hx of GBM over the right parietal 2. 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 History of right GBM parietal mass status post resection (2018) 4. Vasogenic edema over the right parietal region due to #3 5. Focal Epilepsy due to #3 6. Left hemiparesis due to above #3 7. Macrocytosis Plan: Continue Keppra to 1500mg 1 tab bid. There is no need for EEG since the patient is known to have epilepsy and is currently back to baseline. Continue every 4 hours neuro checks. Patient was started on dexamethasone 1 mg by mouth every 48 hours and also in the dexamethasone 2 mg every 48 hours by ED. Patient is on seizure precaution and that's to be continued as well as seizure pads is ordered. PT and OT are consulted. vitamin B12: 521 (normal), serum folate level: 19.4 (normal). Pending methylmalonic acid. If the patient is back to normal by tomorrow that he is clear from neurology perspective. The patient needs to follow-up with his Neurologist (Dr. Osvaldo Palmer) within 1-2 weeks. Also continue to follow-up with his Oncologist (Dr. Iris Randolph). Per the patient nurse the primary team is concerning of sending the patient over to rehab. There is no further neurological workup needed at this time. The plan is discussed with the patient and his (Margaret). Aditya Huber M.D. Neuro-hospitalist Time with Patient: Less than 30
--- NOTE | 2020-06-12 21:44 | PN ---
PROGRESS NOTE DATE OF SERVICE: 06/12/2020 I am covering for Dr. Dennis Salcido. This 70-year-old gentleman who was admitted with acute focal seizures also had an old right parietal lobe lesion. Neurology following the patient closely. There were no seizures after admission. Platelets are 106. Past medical history reviewed. PHYSICAL EXAM: Patient is alert, oriented x2. Mild dysarthric. Pulse 77, blood pressure 120/93, respirations 17, temperature 97.9, pulse ox 94% on room air. HEENT: Conjunctivae normal. NECK: No JVD. CARDIOVASCULAR: S1, S2. RESPIRATORY: Breath sounds diminished in the bases. No rhonchi. No crackles. ABDOMEN: Soft. LEGS are no edema. NERVOUS SYSTEM: Minimal weakness on the left side. LABS: WBC for 4.92, hemoglobin 12.9, platelets are noted. ASSESSMENT: 1. Acute focal seizures possibly secondary to right parietal mass resection. 2. Breakthrough seizures with left focal seizures with secondary generalization. 3. Increased MCV. 4. Increased plasma lactic acidosis secondary to seizure. 5. Increased ALT. 6. Multiple purpuric lesions and possibly secondary to anticoagulation. 7. History of deep vein thrombosis. 8. History of hyperlipidemia. 9. History of glaucoma. 10.History of anxiety. 11.History of continued ongoing nicotine dependence. 12.FULL CODE. RECOMMENDATIONS AND DISCUSSION: I recommend to continue current medications, management and symptomatic treatment. Continue with Keppra. Otherwise, closely follow with Neurology. Guarded prognosis. Further recommendations to follow. MMODL / IJN: [id number] /
[2020-06-12] MEDS: ATORVASTATIN 20 MG TAB PO SCH (21:59)
[2020-06-12] MEDS: ZOLPIDEM 5 MG TAB PO SCH (21:59)
[2020-06-12] MEDS: LATANOPROST 0.005% OPHTH DROPS 2.5 ML BTL BOTH EYES SCH (22:00)
[2020-06-13] MEDS: HEPARIN SODIUM,PORCINE/PF 5,000 UNIT/0.5 ML SYRINGE SQ SCH (09:30)
[2020-06-13] MEDS: PANTOPRAZOLE 40 MG TABLET PO SCH (09:30)
[2020-06-13] MEDS: dexAMETHasone 2 MG TAB PO SCH (09:30)
[2020-06-13] MEDS: levETIRAcetam 500 MG TAB PO SCH (09:34)
[2020-06-13 14:02] VITALS: BP 152/83; PULSE 75; RESP 19; TEMP 97.7
--- NOTE | 2020-06-13 16:46 | DS ---
DISCHARGE SUMMARY DATE OF SERVICE: 06/13/2020 FINAL DIAGNOSES: 1. Acute focal seizure, possibly secondary to right parietal mass resection and surgery. 2. Breakthrough seizures with a left focal seizure with secondary generalization. 3. Increased mean corpuscular volume. 4. Increased plasma lactic acidosis secondary to seizure. 5. Increased ALT. 6. Multiple purpuric lesions, possibly secondary to anticoagulation previously. 7. History of deep venous thrombosis. 8. History of hyperlipidemia. 9. History of glaucoma. 10.History of anxiety. 11.History of nicotine dependence. 12.FULL CODE. DISCHARGE DISPOSITION: The patient will be discharged in stable condition with guarded prognosis. Discharge will be cleared by Neurology. HISTORY OF PRESENT ILLNESS: This 70-year-old gentleman with a past medical history of multiple medical problems, being followed by Dr. Dennis Salcido in the outpatient setting, was admitted with seizure disorder with a possible focal seizure with secondary generalization. The patient was treated symptomatically. On exam, vital signs are stable. CARDIOVASCULAR SYSTEM: S1, S2 muffled. ABDOMEN: Soft, non-tender. NERVOUS SYSTEM: Unchanged. DISCHARGE ADVICE AND MEDICATIONS: 1. Cardiac diet. 2. Activity limited until followup. 3. Follow up with Dr. Dennis Salcido in 1-2 days. 4. Follow up with Neurology as recommended. 5. Ambien 5 mg at bedtime. 6. Bactrim DS as before, Saturday, Saturday, Saturday. 7. Dexamethasone 1 mg q.48 hours and 2 mg q.48 hours. 8. Lidocaine patch. 9. Lidocaine cream as before. 10.Keppra 1000 mg p.o. b.i.d. per Neurology. 11.Latanoprost 1 drop both eyes daily. 12.Lipitor 20 mg at bedtime. 13.Omeprazole 20 mg b.i.d. 14.Diclofenac p.r.n. Once again, the patient will be discharged in stable condition with guarded prognosis. MMODL / IJN: [id number] /
--- NOTE | 2020-07-06 12:35 | CDI ---
Documentation Clarification Form Date: 07/06/2020 06:03:00 AM From: Maryjo Mehta Phone: Admit Date: 06/10/2020 11:37:00 PM Patient Name: Jignesh Irvin Visit Number: [id number] Discharge Date: 06/13/2020 06:30:00 PM ATTENTION: The Clinical Documentation Specialists (CDI) and [facility] Coding Staff appreciate your assistance in clarifying documentation. Please respond to the clarification below the line at the bottom and electronically sign. The CDI & [facility] Coding staff will review the response and follow-up if needed. Please note: Queries are made part of the Legal Health Record. If you have any questions, please contact the author of this message via ITS. Dr. Lori Garcia, Vasogenic edema is documented on 06/[address] Huber in his consult which may lack sufficient clinical evidence/support in the medical record. Additional clarification is requested. History/Risk Factors: History of GBM over right parietal status post resection (2019) with focal epilepsy. Clinical Indicators: 1. Break-through seizure (focal seizure) due to hx of GBM over the right parietal. 2. Patricio's paralysis due to the above. 3.History of right GBM parietal mass status post resection (2019) 4.Vasogenic edema over the right parietal region due to #3. CT scan: Encephalomalacia right parietal lobe with previous surgery. Right parietal mild white matter edema. Cerebral parenchymal calcification could be residual of tumor. No significant change compared to old exam. Treatment: Dexamethasone, same as home schedule Please clarify if vasogenic edema is a valid diagnosis? [ ] Yes, [insert diagnosis] is present as evidence by (additional clinical support): [ ] No, [insert diagnosis] is ruled out [ ] Other (please specify diagnosis) [ ] Unable to determine Yes,vasogenic edema] is present as evidence by mri and neuro consult sec to parietal turmor MTDD
== END 2020-06-13 18:30 | DRG 100 ==
LOC: EC 21:16 → 5NMEDONC 23:37
PROVIDERS: ADMIT Family Medicine; ATTEND Family Medicine
DX: G40.101 Localization-related (focal) (partial) symptomatic epilepsy and epileptic syndromes with simple partial seizures, not intractable, with status epilepticus (principal); G93.6 Cerebral edema; E87.2 Acidosis; G81.94 Hemiplegia, unspecified affecting left nondominant side; D69.2 Other nonthrombocytopenic purpura; G83.84 Todd's paralysis (postepileptic); Z20.822 Contact with and (suspected) exposure to COVID-19; G93.89 Other specified disorders of brain; E86.0 Dehydration; E78.5 Hyperlipidemia, unspecified; D75.89 Other specified diseases of blood and blood-forming organs; R21 Rash and other nonspecific skin eruption; F41.9 Anxiety disorder, unspecified; R32 Unspecified urinary incontinence; H40.9 Unspecified glaucoma; T45.515A Adverse effect of anticoagulants, initial encounter; F17.290 Nicotine dependence, other tobacco product, uncomplicated; Z71.6 Tobacco abuse counseling; Z79.899 Other long term (current) drug therapy; Z79.2 Long term (current) use of antibiotics; Z85.841 Personal history of malignant neoplasm of brain; Z86.718 Personal history of other venous thrombosis and embolism; Z87.2 Personal history of diseases of the skin and subcutaneous tissue; Z91.030 Bee allergy status; Z80.0 Family history of malignant neoplasm of digestive organs
CPT/HCPCS: 36415; 70450; 80048; 80053; 80306; 80320; 81003; 82550; 82607; 82746; 82747; 83605; 83735; 84443; 85025; 85610; 87635; 93005; 96361; 96365; 96375; 96376; 99285

== ENCOUNTER 2020-09-10 | Observation (INO) | payer MEDICARE | END 2020-09-12 13:16 | disposition home or self-care (01) | PROVIDERS: ADMIT Hospitalist | CPT/HCPCS: 96375; 96374; 99285; 36415; 93005; 80053 ×2; 80048; 83735; 85025 ×2; 70450; G0378 ×3; J2060; J1940 ==

== ENCOUNTER 2020-09-16 02:09 | Observation (INO) | payer MEDICARE ==
[2020-09-16] MEDS ORDERED: MORPHINE SULFATE 4 MG/ML SYRINGE IV STA (02:32)
[2020-09-16] MEDS ORDERED: ONDANSETRON 4 MG/2 ML VIAL IVP STA (02:32)
[2020-09-16] MEDS ORDERED: SODIUM CHLORIDE 0.9% 500 ML 500 ML IV STA ×2 (02:32→03:07)
[2020-09-16] MEDS ORDERED: SODIUM CHLORIDE 0.9% 1,000 ML IV STA (02:32)
--- NOTE | 2020-09-16 02:33 | ED ---
Abdominal Pain HPI - General Chief Complaint: Abdominal Pain Stated Complaint: Abdominal pain Time Seen by Provider: 09/16/20 02:21 Source: patient, RN notes reviewed, old records reviewed Mode of arrival: EMS Limitations: no limitations - History of Present Illness Initial Comments: This is a 62-year-old male DF for evaluation. Patient has sudden onset of abdominal pain epigastric abdominal pain lower quadrant [place] a. Patient states he's never had such pain before. Patient denies it. Reflux has a little nausea but states pain is sharp. is at bedside who states patient never has a complains of pain ever need to take pain medication at home. Patient's been feeling well as of late maybe diminished appetite is a little dehydration. MD Complaint: abdominal pain, other (chest pain, epigastric) -: hour(s) Location: epigastric Radiation: epigastric, back Migration to: bilateral flank Severity: severe Severity scale (1-10): 8 Quality: sharp Consistency: constant Improves With: nothing Worsens With: nothing Associated Symptoms: denies other symptoms Treatments Prior to Arrival: other (none) - Related Data Home Medications Medication Instructions Recorded Confirmed Atorvastatin [Lipitor] 20 mg PO HS 12/18/15 09/11/20 Latanoprost/Pf [Latanoprost 0.005% 1 drop BOTH EYES HS 10/31/17 09/11/20 Eye Drop] Diclofenac Sodium Gel [Voltaren 2 gm TOPICAL QID PRN 02/27/20 09/11/20 Gel] Lidocaine-Prilocaine Cream [Emla 1 applic TOPICAL DAILY PRN 02/27/20 09/11/20 Cream 2.5%/2.5%] Omeprazole 20 mg PO AC-BRKFST 02/27/20 09/11/20 Sulfamethox-Tmp 800-160Mg [Bactrim 1 tab PO MOWEFR 02/27/20 09/11/20 DS 800-160 mg] diazePAM [Valium] 5 mg PO Q8H PRN 09/11/20 09/11/20 dexAMETHasone [Dexamethasone] 3 mg PO DAILY 09/16/20 09/16/20 Previous Rx's Medication Instructions Recorded Zolpidem [Ambien] 5 mg PO HS #4 tab 06/13/20 levETIRAcetam [Keppra] 1,500 mg PO Q12HR #120 tab 09/12/20 Allergies Allergy/AdvReac Type Severity Reaction Status Date / Time venom-honey bee Allergy Swelling Verified 09/16/20 02:17 [bee venom (honey bee)] Review of Systems ROS Statement: Those systems with pertinent positive or pertinent negative responses have been documented in the HPI. ROS Other: All systems not noted in ROS Statement are negative. Past Medical History Past Medical History: Deep Vein Thrombosis (DVT), Eye Disorder, Seizure Disorder Additional Past Medical History / Comment(s): glaucoma, brain tumor History of Any Multi-Drug Resistant Organisms: None Reported Past Surgical History: No Surgical Hx Reported Additional Past Surgical History / Comment(s): Colonoscopies; Feet / toenails & cyst off foot; eye lasix surgery, brain surgery for R sided tumor Past Anesthesia/Blood Transfusion Reactions: No Reported Reaction Past Psychological History: Anxiety Smoking Status: Current some day smoker Past Alcohol Use History: Occasional Past Drug Use History: None Reported - Past Family History Mother Family Medical History: Cancer Additional Family Medical History / Comment(s): Colon Cancer General Exam Limitations: no limitations General appearance: alert, in no apparent distress, anxious, in distress Head exam: Present: atraumatic, normocephalic, normal inspection Eye exam: Present: normal appearance, PERRL, EOMI. Absent: scleral icterus, conjunctival injection, periorbital swelling ENT exam: Present: normal exam, mucous membranes dry Neck exam: Present: normal inspection. Absent: tenderness, meningismus, lymphadenopathy Respiratory exam: Present: normal lung sounds bilaterally. Absent: respiratory distress, wheezes, rales, rhonchi, stridor Cardiovascular Exam: Present: regular rate, normal rhythm, normal heart sounds. Absent: systolic murmur, diastolic murmur, rubs, gallop, clicks GI/Abdominal exam: Present: soft, normal bowel sounds. Absent: distended, tenderness, guarding, rebound, rigid Extremities exam: Present: normal inspection, full ROM, normal capillary refill. Absent: tenderness, pedal edema, joint swelling, calf tenderness Back exam: Present: normal inspection Neurological exam: Present: alert, oriented X3, CN II-XII intact Psychiatric exam: Present: normal affect, normal mood Skin exam: Present: warm, dry, intact, normal color. Absent: rash Course Vital Signs 09/16/20 09/16/20 09/16/20 02:11 02:54 03:05 Temperature 97.6 F Pulse Rate 58 L 59 L 60 Respiratory 20 18 20 Rate Blood Pressure 218/110 201/99 187/90 O2 Sat by Pulse 97 94 L 93 L Oximetry 09/16/20 04:02 Temperature Pulse Rate 85 Respiratory 16 Rate Blood Pressure 163/77 O2 Sat by Pulse 90 L Oximetry - Reevaluation(s) Reevaluation #1: 09/16/20 06:41 Medical record is reviewed Patient symptoms are improved here in the ER Patient is in no acute distress Patient informed results and questions answered Patient discussing with does not fill comfortable with discharge as he does never have pain Medical Decision Making - Medical Decision Making 62 male DF for evaluation of abdominal pain epigastric pain chest pain. Patient's blood pressure was significantly elevated on arrival improved currently. Pain is controlled, he'll be admitted for evaluation of pain - Lab Data Result diagrams: 09/16/20 02:49 09/16/20 02:49 Lab Results 09/16/20 09/16/20 09/16/20 Range/Units 02:49 02:49 02:49 WBC 5.5 (3.8-10.6) k/uL RBC 4.24 L (4.30-5.90) m/uL Hgb 14.6 (13.0-17.5) gm/dL Hct 43.0 (39.0-53.0) % MCV 101.4 H (80.0-100.0) fL MCH 34.6 (25.0-35.0) pg MCHC 34.1 (31.0-37.0) g/dL RDW 15.8 H (11.5-15.5) % Plt Count 91 L (150-450) k/uL MPV 7.8 Neutrophils % 68 % Lymphocytes % 21 % Monocytes % 7 % Eosinophils % 0 % Basophils % 1 % Neutrophils # 3.7 (1.3-7.7) k/uL Lymphocytes # 1.2 (1.0-4.8) k/uL Monocytes # 0.4 (0-1.0) k/uL Eosinophils # 0.0 (0-0.7) k/uL Basophils # 0.0 (0-0.2) k/uL Macrocytosis Slight Sodium 137 (137-145) mmol/L Potassium 3.8 (3.5-5.1) mmol/L Chloride 103 (98-107) mmol/L Carbon Dioxide 26 (22-30) mmol/L Anion Gap 8 mmol/L BUN 16 (9-20) mg/dL Creatinine 0.46 L (0.66-1.25) mg/dL Est GFR (CKD-EPI)AfAm >90 (>60 ml/min/1.73 sqM) Est GFR (CKD-EPI)NonAf >90 (>60 ml/min/1.73 sqM) Glucose 131 H (74-99) mg/dL Lactic Ac Sepsis Rflx Plasma Lactic Acid Leo 2.3 H* (0.7-2.0) mmol/L Calcium 9.0 (8.4-10.2) mg/dL Total Bilirubin 0.6 (0.2-1.3) mg/dL AST 35 (17-59) U/L ALT 45 (4-49) U/L Alkaline Phosphatase 37 L (38-126) U/L Troponin I (0.000-0.034) ng/mL Total Protein 5.9 L (6.3-8.2) g/dL Albumin 3.7 (3.5-5.0) g/dL Amylase 33 (30-110) U/L Lipase 74 (23-300) U/L Urine Color Urine Appearance (Clear) Urine pH (5.0-8.0) Ur Specific Ransom (1.001-1.035) Urine Protein (Negative) Urine Glucose (UA) (Negative) Urine Ketones (Negative) Urine Blood (Negative) Urine Nitrite (Negative) Urine Bilirubin (Negative) Urine Urobilinogen (<2.0) mg/dL Ur Leukocyte Esterase (Negative) 09/16/20 09/16/20 09/16/20 Range/Units 02:49 03:21 03:51 WBC (3.8-10.6) k/uL RBC (4.30-5.90) m/uL Hgb (13.0-17.5) gm/dL Hct (39.0-53.0) % MCV (80.0-100.0) fL MCH (25.0-35.0) pg MCHC (31.0-37.0) g/dL RDW (11.5-15.5) % Plt Count (150-450) k/uL MPV Neutrophils % % Lymphocytes % % Monocytes % % Eosinophils % % Basophils % % Neutrophils # (1.3-7.7) k/uL Lymphocytes # (1.0-4.8) k/uL Monocytes # (0-1.0) k/uL Eosinophils # (0-0.7) k/uL Basophils # (0-0.2) k/uL Macrocytosis Sodium (137-145) mmol/L Potassium (3.5-5.1) mmol/L Chloride (98-107) mmol/L Carbon Dioxide (22-30) mmol/L Anion Gap mmol/L BUN (9-20) mg/dL Creatinine (0.66-1.25) mg/dL Est GFR (CKD-EPI)AfAm (>60 ml/min/1.73 sqM) Est GFR (CKD-EPI)NonAf (>60 ml/min/1.73 sqM) Glucose (74-99) mg/dL Lactic Ac Sepsis Rflx Y Plasma Lactic Acid Leo (0.7-2.0) mmol/L Calcium (8.4-10.2) mg/dL Total Bilirubin (0.2-1.3) mg/dL AST (17-59) U/L ALT (4-49) U/L Alkaline Phosphatase (38-126) U/L Troponin I <0.012 (0.000-0.034) ng/mL Total Protein (6.3-8.2) g/dL Albumin (3.5-5.0) g/dL Amylase (30-110) U/L Lipase (23-300) U/L Urine Color Light Yellow Urine Appearance Clear (Clear) Urine pH 8.0 (5.0-8.0) Ur Specific Ransom 1.040 H (1.001-1.035) Urine Protein Negative (Negative) Urine Glucose (UA) Negative (Negative) Urine Ketones Negative (Negative) Urine Blood Negative (Negative) Urine Nitrite Negative (Negative) Urine Bilirubin Negative (Negative) Urine Urobilinogen <2.0 (<2.0) mg/dL Ur Leukocyte Esterase Negative (Negative) - EKG Data -: EKG Interpreted by Me (EKG is sinus bradycardia 57 UT 164 QRS 104 QTC 438) - Radiology Data Radiology results: report reviewed (Chest x-ray and CT abdomen and pelvis negative for acute disease), image reviewed Disposition Clinical Impression: Abdominal pain, Chest pain, Hypertension, Dehydration Disposition: ADMITTED IP TO THIS HOSP Condition: Undetermined Is patient prescribed a controlled substance at d/c from ED?: No
[2020-09-16] MEDS ORDERED: hydrALAZINE HCL 20 MG/ML 1 ML VIAL IVP STA (02:39)
[2020-09-16 03:12] LABS: ALT 45 U/L (4-49); AST 35 U/L (17-59); African American GFR (CKD) >90 (>60 ml/min/1.73 sqM); Albumin 3.7 g/dL (3.5-5.0); Alkaline Phosphatase 37 U/L (38-126); Amylase 33 U/L (30-110); Anion Gap 8 mmol/L; Blood Urea Nitrogen 16 mg/dL (9-20); Carbon Dioxide 26 mmol/L (22-30); Chloride 103 mmol/L (98-107); Glucose 131 mg/dL (74-99); Lipase 74 U/L (23-300); Non-African American GFR(CKD) >90 (>60 ml/min/1.73 sqM); Potassium 3.8 mmol/L (3.5-5.1); Sodium 137 mmol/L (137-145); Total Bilirubin 0.6 mg/dL (0.2-1.3); Total Protein 5.9 g/dL (6.3-8.2)
[2020-09-16 03:19] LABS: Basophils % (A) 1 %; Eosinophils % (A) 0 %; HGB 14.6 gm/dL (13.0-17.5); Lymphocytes # (A) 1.2 k/uL (1.0-4.8); Lymphocytes % (A) 21 %; MCH 34.6 pg (25.0-35.0); MCHC 34.1 g/dL (31.0-37.0); MCV 101.4 fL (80.0-100.0); Macrocytosis Slight; Mean Platelet Volume 7.8; Monocytes # (A) 0.4 k/uL (0-1.0); Monocytes % (A) 7 %; Neutrophils # (A) 3.7 k/uL (1.3-7.7); Neutrophils % (A) 68 %; RBC 4.24 m/uL (4.30-5.90); RDW 15.8 % (11.5-15.5); WBC 5.5 k/uL (3.8-10.6)
[2020-09-16 03:32] LABS: Platelet Count 91 k/uL (150-450)
[2020-09-16] MEDS ORDERED: HYDROmorphone 1 MG/ML 1 ML SYRINGE IVP STA (03:47)
--- NOTE | 2020-09-16 03:55 | CT ---
EXAMINATION TYPE: CT abdomen pelvis w con DATE OF EXAM: 09/16/2020 COMPARISON: None HISTORY: pain CT DLP: 1567.1 mGycm Automated exposure control for dose reduction was used. CONTRAST: Performed with IV Contrast, patient injected with 100 mL of Isovue 300. Images obtained from the diaphragm to the floor the pelvis with IV contrast. There is some mild fibrotic changes and subsegmental atelectasis at the lung bases. Heart size is addie rly normal. There is no pericardial effusion. There are multiple cysts in the liver that measure up t o 2.4 cm. The bile ducts are not dilated. Gallbladder appears normal. There is no pancreatic mass. Sp estefany is intact. The stomach is intact. There is no adrenal mass. Kidneys show satisfactory contrast opacification. There is no hydronephrosi s. There are left-sided renal parapelvic cysts. There is 2.6 cm cortical cyst posterior lower pole le ft kidney. I see no evidence of solid renal mass. Ureters are not dilated. There is no retroperitonea l adenopathy. There is small linear density that could be normal small appendix. I see no sign of thi ckened appendix. Bladder distends smoothly. There is no inguinal hernia. There is no free fluid in th e pelvis. There is 1.5 cm umbilical hernia that contains fat. There is no mesenteric edema. There is no ascites or free air. There is no bowel obstruction. The lumbar vertebra have fairly normal alignment. There is 15% depression of the superior endplate of L4 that appears old. The bony pelvis is intact. The hip joints are intact. IMPRESSION: No acute abnormality of the abdomen pelvis. Mild subsegmental atelectasis and scarring at the lung ba ses. Multiple small anterior hepatic cysts.
[2020-09-16 04:18] LABS: Appearance,Urine Clear (Clear); Bilirubin,Urine Negative (Negative); Blood,Urine Negative (Negative); Color,Urine Light Yellow; Glucose,Urine (UA) Negative (Negative); Ketones,Urine Negative (Negative); Leukocyte Esterase,Urine Negative (Negative); Nitrite,Urine Negative (Negative); Protein,Urine Negative (Negative); Urobilinogen,Urine <2.0 mg/dL (<2.0)
[2020-09-16] MEDS ORDERED: ASPIRIN 81 MG PO STA (04:58)
[2020-09-16] MEDS ORDERED: MORPHINE SULFATE 4 MG/ML SYRINGE IV PRN (04:58)
[2020-09-16] MEDS ORDERED: NITROGLYCERIN SL TABS 0.4 MG TAB SUBLINGUAL PRN (04:58)
--- NOTE | 2020-09-16 05:40 | XR ---
EXAMINATION TYPE: XR chest 1V DATE OF EXAM: 09/16/2020 COMPARISON: 03/23/2020 HISTORY: Short of breath TECHNIQUE: FINDINGS: There is right central venous catheter with tip in the superior vena cava. There are chest leads. There is poor inspiration. There is no pulmonary consolidation or heart failure. Bony thorax a ppears intact. IMPRESSION: No evidence of active cardiopulmonary disease. There is clearing of some minimal pleural reaction left lung base compared to old exam.
[2020-09-16] MEDS ORDERED: DOCUSATE 100 MG CAP PO PRN (07:46)
[2020-09-16] MEDS ORDERED: valACYclovir HCL 1,000 MG TABLET PO PRN (07:46)
[2020-09-16] MEDS ORDERED: NYSTATIN 100,000 UNIT/GM POWD 15 GM TOPICAL PRN (07:46)
[2020-09-16] MEDS ORDERED: diazePAM 5 MG TAB PO PRN (07:46)
[2020-09-16] MEDS ORDERED: DICLOFENAC SODIUM GEL 100 GM TUBE TOPICAL PRN (07:46)
[2020-09-16] MEDS ORDERED: SULFAMETHOX-TMP 800-160MG 1 EACH TAB PO SCH (09:00)
[2020-09-16] MEDS: dexAMETHasone 2 MG TAB PO SCH (10:04)
[2020-09-16] MEDS: SODIUM CHLORIDE 0.9% 1,000 ML IV SCH ×3 (10:04→17:42)
--- NOTE | 2020-09-16 12:18 | P.HPIM ---
History of Present Illness H&P Date: 09/16/20 Chief Complaint: Abdominal pain 62-year-old male was admitted to the hospital for severe sudden onset of abdominal pain located in the epigastric area with associated mild nausea. 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 Patient's diagnostics labs in the emergency department elevated lactic acid, resolved with mild fluid resuscitation. CT abdomen and pelvis of the contrast was performed, no acute abnormalities of the pelvis; noted scarring and atelectasis lower lung bases, and multiple small anterior hepatic cysts. Chest x-ray done during emergency department visit and minimal pleural reaction noted left lung base. Patient seen and examined in emergency department, resting comfortably in bed with 2 L of oxygen to keep oxygen saturations greater than 92%. Patient endorses mild epigastric pain, increasing lower extremity edema, and generalized fatigue. Patient denies fever, chills, chest discomfort or palpitations. Review of Systems Constitutional: Reports poor appetite, Reports weakness Cardiovascular: Reports dyspnea on exertion, Reports edema Gastrointestinal: Reports abdominal pain Genitourinary: Reports as per HPI Musculoskeletal: Reports muscle weakness Integumentary: Reports as per HPI Neurological: Reports balance difficulties Endocrine: Reports as per HPI Hematologic/Lymphatic: Reports as per HPI Allergic/Immunologic: Reports as per HPI Past Medical History Past Medical History: Deep Vein Thrombosis (DVT), Eye Disorder, Seizure Disorder Additional Past Medical History / Comment(s): glaucoma, brain tumor History of Any Multi-Drug Resistant Organisms: None Reported Past Surgical History: No Surgical Hx Reported Additional Past Surgical History / Comment(s): Colonoscopies; Feet / toenails & cyst off foot; eye lasix surgery, brain surgery for R sided tumor Past Anesthesia/Blood Transfusion Reactions: No Reported Reaction Past Psychological History: Anxiety Smoking Status: Current some day smoker Past Alcohol Use History: Occasional Past Drug Use History: None Reported - Past Family History Mother Family Medical History: Cancer Additional Family Medical History / Comment(s): Colon Cancer Medications and Allergies Home Medications and Allergies Comment(s): Medications and ALLERGIES reviewed Home Medications Medication Instructions Recorded Confirmed Type Atorvastatin [Lipitor] 20 mg PO HS 12/18/15 09/16/20 History Latanoprost/Pf [Latanoprost 0.005% 1 drop BOTH EYES HS 10/31/17 09/16/20 History Eye Drop] Diclofenac Sodium Gel [Voltaren 2 gm TOPICAL QID PRN 02/27/20 09/16/20 History Gel] Lidocaine-Prilocaine Cream [Emla 1 applic TOPICAL DAILY PRN 02/27/20 09/16/20 History Cream 2.5%/2.5%] Omeprazole 20 mg PO AC-BRKFST 02/27/20 09/16/20 History Sulfamethox-Tmp 800-160Mg [Bactrim 1 tab PO MOWEFR 02/27/20 09/16/20 History DS 800-160 mg] Zolpidem [Ambien] 5 mg PO HS #4 tab 06/13/20 09/16/20 Rx diazePAM [Valium] 5 mg PO Q8H PRN 09/11/20 09/16/20 History levETIRAcetam [Keppra] 1,500 mg PO Q12HR #120 tab 09/12/20 09/16/20 Rx Bevacizumab [Avastin] 1 dose IV Q14D 09/16/20 09/16/20 History Docusate [Colace] 100 mg PO BID PRN 09/16/20 09/16/20 History Nystatin 100,000 Unit/gm Powd 1 applic TOPICAL QID PRN 09/16/20 09/16/20 History [Mycostatin Powder] Nystatin 100,000 Unit/ml Susp 500,000 unit PO QID 09/16/20 09/16/20 History [Mycostatin Oral Susp] dexAMETHasone [Dexamethasone] 3 mg PO DAILY 09/16/20 09/16/20 History valACYclovir HCL [Valtrex] 1,000 mg PO TID PRN 09/16/20 09/16/20 History Allergies Allergy/AdvReac Type Severity Reaction Status Date / Time venom-honey bee Allergy Swelling Verified 09/16/20 06:46 [bee venom (honey bee)] Physical Exam Vitals: Vital Signs Temp Pulse Resp BP Pulse Ox 09/16/20 10:07 80 16 142/92 98 09/16/20 08:48 78 16 132/74 97 09/16/20 07:03 97.7 F 84 18 136/87 98 09/16/20 04:02 85 16 163/77 90 L 09/16/20 03:05 60 20 187/90 93 L 09/16/20 02:54 59 L 18 201/99 94 L 09/16/20 02:11 97.6 F 58 L 20 218/110 97 Intake and Output 09/15/20 09/16/20 09/16/20 22:59 06:59 14:59 Other: Weight 90.718 kg - Constitutional General appearance: mild distress - EENT Eyes: EOMI, PERRLA ENT: hard of hearing Ears: bilateral: normal - Neck Neck: normal ROM Carotids: bilateral: upstroke normal Thyroid: bilateral: normal size - Respiratory Respiratory: bilateral: diminished (Anterior and posterior lung nobles) - Cardiovascular Sinus bradycardia Heart rate: 59 Rhythm: regular Heart sounds: normal: S1, S2 leg Peripheral Edema: bilateral: 1+ ankle Peripheral Edema: bilateral: 2+ foot Peripheral Edema: bilateral: 3+ dorsalis pedis Peripheral Pulses: bilateral: Normal radial pulse Peripheral Pulses: bilateral: Normal - Gastrointestinal General gastrointestinal: tenderness Localized gastrointestinal: tender: epigastric periumbilical - Integumentary Integumentary: pale - Neurologic Neurologic: CNII-XII intact - Musculoskeletal Musculoskeletal: generalized weakness, left sided weakness - Psychiatric Psychiatric: A&O x's 3, appropriate affect, intact judgment & insight Results CBC & Chem 7: 09/16/20 02:49 09/16/20 02:49 Labs: Abnormal Lab Results - Last 24 Hours (Table) 09/16/20 09/16/20 09/16/20 Range/Units 02:49 02:49 02:49 RBC 4.24 L (4.30-5.90) m/uL MCV 101.4 H (80.0-100.0) fL RDW 15.8 H (11.5-15.5) % Plt Count 91 L (150-450) k/uL Creatinine 0.46 L (0.66-1.25) mg/dL Glucose 131 H (74-99) mg/dL Plasma Lactic Acid Leo 2.3 H* (0.7-2.0) mmol/L Alkaline Phosphatase 37 L (38-126) U/L Total Protein 5.9 L (6.3-8.2) g/dL Ur Specific [place] (1.001-1.035) 09/16/20 Range/Units 03:51 RBC (4.30-5.90) m/uL MCV (80.0-100.0) fL RDW (11.5-15.5) % Plt Count (150-450) k/uL Creatinine (0.66-1.25) mg/dL Glucose (74-99) mg/dL Plasma Lactic Acid Leo (0.7-2.0) mmol/L Alkaline Phosphatase (38-126) U/L Total Protein (6.3-8.2) g/dL Ur Specific [place] 1.040 H (1.001-1.035) Chest x-ray: report reviewed CT scan - abdomen: report reviewed Thrombosis Risk Factor Assmnt - Choose All That Apply Each Factor Represents 1 point: Obesity (BMI >25) Each Risk Factor Represents 2 Points: Age 61-74 years Each Risk Factor Represents 3 Points: History of DVT/PE Thrombosis Risk Factor Assessment Total Risk Factor Score: 6 Thrombosis Risk Factor Assessment Level: High Risk Assessment and Plan Assessment: Abdominal pain Chest discomfort Hypertensive Elevated lactic acid, resolved with fluid resuscitation Seizure disorder, on antiepileptics Hyperlipidemia GERD/reflux History of glioblastoma, with surgical procedure of removal in the past Left-sided weakness, secondary to history of glioblastoma Mixed anxiety and depression Glaucoma Full code Plan: Abdominal pain, CT of abdomen and pelvis performed emergency department. Continue trend labs and diagnostics Chest pain, troponins negative 3, obtain echocardiogram and consultation with cardiology for recommendations and treatment plan Elevated lactic acid, resolved with fluid resuscitation Lower extremity edema, IV diuretics Continue to monitor vital signs and diagnostic testing Continue home medications Continue medical management Further recommendations to come based on patient's clinical condition Time with Patient: Greater than 30
--- NOTE | 2020-09-16 12:35 | ECHOF ---
Referral Reason:chest pain MEASUREMENTS -------- HEIGHT: 180.3 cm WEIGHT: 91.6 kg BP: 142/92 RVIDd: 2.8 cm (< 3.3) IVSd: 1.6 cm (0.6 - 1.1) LVIDd: 3.8 cm (3.9 - 5.3) LVPWd: 1.3 cm (0.6 - 1.1) IVSs: 2.0 cm LVIDs: 2.7 cm LVPWs: 1.9 cm LA Diam: 2.9 cm (2.7 - 3.8) Ao Diam: 3.7 cm (2.0 - 3.7) AV Cusp: 2.2 cm (1.5 - 2.6) MV EXCURSION: 18.048 mm (> 18.000) MV EF SLOPE: 30 mm/s (70 - 150) EPSS: 0.7 cm MV E Obed: 0.63 m/s MV DecT: 208 ms MV A Obed: 0.72 m/s MV E/A Ratio: 0.88 FINDINGS -------- Sinus rhythm. This was a technically adequate study. The left ventricular size is normal. There is moderate concentric left ventricular hypertrophy. O verall left ventricular systolic function is normal with, an EF between 55 - 60 %. The right ventricle is normal in size. The left atrium is normal in size. The right atrium is normal in size. There is mild aortic valve sclerosis. The mitral valve is normal. The tricuspid valve appears structurally normal. Unable to estimate RVSP due to inadequate TR jet s pectral doppler profile. Trace/mild (physiologic) pulmonic regurgitation. The aortic root size is normal. IVC Not well visulized. There is no pericardial effusion. CONCLUSIONS -------- 1. The left ventricular size is normal. 2. There is moderate concentric left ventricular hypertrophy. 3. Overall left ventricular systolic function is normal with, an EF between 55 - 60 %. 4. There is mild aortic valve sclerosis. 5. Trace/mild (physiologic) pulmonic regurgitation. 6. There is no pericardial effusion. COLLAR TAILOR: Dona Roldan [facility]
[2020-09-16] MEDS: FUROSEMIDE 10 MG/ML 2 ML VIAL IV SCH ×2 (14:43→21:45)
[2020-09-16] MEDS: NYSTATIN 100,000 UNIT/ML SUSP 500,000 UNIT/5 ML CUP PO SCH ×5 (14:43→21:44)
[2020-09-16 19:06] LABS: African American GFR (CKD) >90 (>60 ml/min/1.73 sqM); Anion Gap 7 mmol/L; Blood Urea Nitrogen 12 mg/dL (9-20); Calcium 8.9 mg/dL (8.4-10.2); Carbon Dioxide 27 mmol/L (22-30); Chloride 104 mmol/L (98-107); Glucose 135 mg/dL (74-99); Non-African American GFR(CKD) >90 (>60 ml/min/1.73 sqM); Sodium 138 mmol/L (137-145)
[2020-09-16] MEDS ORDERED: LATANOPROST 0.005% OPHTH DROPS 2.5 ML BTL BOTH EYES SCH (21:00)
[2020-09-16] MEDS ORDERED: ZOLPIDEM 5 MG TAB PO SCH (21:00)
[2020-09-16] MEDS ORDERED: ATORVASTATIN 20 MG TAB PO SCH (21:00)
[2020-09-16] MEDS: HEPARIN SODIUM,PORCINE/PF 5,000 UNIT/0.5 ML SYRINGE SQ SCH (21:46)
--- NOTE | 2020-09-16 21:49 | US ---
EXAMINATION TYPE: US venous doppler duplex LE DATE OF EXAM: 09/16/2020 9:09 PM COMPARISON: US CLINICAL HISTORY: edema/hx of DVT/ elevated d-dimer. Prior left leg DVT, no blood thinner x 3 months. SIDE PERFORMED: Bilateral TECHNIQUE: The lower extremity deep venous system is examined utilizing real time linear array sonog jono with graded compression, doppler sonography and color-flow sonography. VESSELS IMAGED: Common Femoral Vein Deep Femoral Vein Greater Saphenous Vein * Femoral Vein Popliteal Vein Small Saphenous Vein * Proximal Calf Veins (* superficial vessels) Right Leg: Negative for DVT Left Leg: Positive for non occluding DVT left CFV; positive for occluding DVT left main Femoral Vein and one of 2 upper calf veins. Accessory Left Femoral Vein is noted and is patent and compresses. Tech findings reported to patient's RN, Tiffany, at exam's end. JJ IMPRESSION: There is evidence of acute and chronic deep vein thrombosis in the left leg. No evidence of deep vein thrombosis in the right leg.
[2020-09-16] MEDS ORDERED: HEPARIN SOD,PORK IN 0.45% NACL 25,000 UNIT in 0.45% NACL 1 250ML.BAG IV SCH (22:00)
[2020-09-16 22:51] LABS: INR 0.9 (<1.2)
--- NOTE | 2020-09-16 22:52 | CT ---
EXAMINATION TYPE: CT chest angio for PE DATE OF EXAM: 09/16/2020 COMPARISON: None HISTORY: elevated d-dimer, + DVT CT DLP: 466.3 mGycm Automated exposure control for dose reduction was used. CONTRAST: Performed with IV Contrast, patient injected with 80cc mL of Isovue 370. There are 3-D post processed images. There is some patchy atelectasis in the posterior right midlung field. This is in the posterior right upper lobe and superior segment right lower lobe. There is no pleural effusion. There is no pericard ial effusion. There are no hilar masses. There is no mediastinal adenopathy. Thoracic aorta is intact. There is no aneurysm or dissection. Ascending aorta measures 3.6 cm. There are filling defects in the left lower lobe pulmonary artery. These involve the lateral basal se gment branch. Right pulmonary artery appears normal. Bony thorax is intact. There is slight anterior wedging of upper thoracic vertebra 15% with mild kyph osis. Sternum is intact. The ribs appear intact. Upper abdominal soft tissues show hepatic cysts in t he anterior liver that measure up to 2.2 cm. IMPRESSION: There are small emboli in the left lower lobe pulmonary artery. No evidence of right heart strain. Patchy atelectasis in the posterior right midlung field. This exam was discussed with the nursing staff on the floor at 11:00 PM.
[2020-09-17] MEDS: SODIUM CHLORIDE 0.9% 1,000 ML IV SCH (05:26)
[2020-09-17 06:49] LABS: Basophils % (A) 0 %; Eosinophils % (A) 1 %; HCT 36.4 % (39.0-53.0); HGB 12.5 gm/dL (13.0-17.5); Lymphocytes # (A) 1.2 k/uL (1.0-4.8); Lymphocytes % (A) 25 %; MCHC 34.3 g/dL (31.0-37.0); MCV 101.9 fL (80.0-100.0); Macrocytosis Slight; Mean Platelet Volume 7.6; Monocytes # (A) 0.4 k/uL (0-1.0); Monocytes % (A) 8 %; Neutrophils % (A) 64 %; Platelet Count 100 k/uL (150-450); RBC 3.57 m/uL (4.30-5.90); RDW 15.4 % (11.5-15.5); WBC 4.7 k/uL (3.8-10.6)
[2020-09-17] MEDS ORDERED: PANTOPRAZOLE 40 MG TABLET PO SCH (07:30)
[2020-09-17 07:41] LABS: ALT 39 U/L (4-49); AST 25 U/L (17-59); African American GFR (CKD) >90 (>60 ml/min/1.73 sqM); Albumin 3.1 g/dL (3.5-5.0); Albumin/Globulin Ratio 1.6; Alkaline Phosphatase 37 U/L (38-126); Anion Gap 3 mmol/L; Blood Urea Nitrogen 11 mg/dL (9-20); Calcium 8.8 mg/dL (8.4-10.2); Carbon Dioxide 28 mmol/L (22-30); Chloride 108 mmol/L (98-107); Glucose 85 mg/dL (74-99); Non-African American GFR(CKD) >90 (>60 ml/min/1.73 sqM); Potassium 3.4 mmol/L (3.5-5.1); Sodium 139 mmol/L (137-145); Total Bilirubin 0.4 mg/dL (0.2-1.3); Total Protein 5.1 g/dL (6.3-8.2)
[2020-09-17] MEDS: dexAMETHasone 2 MG TAB PO SCH (08:05)
[2020-09-17] MEDS: HEPARIN SODIUM,PORCINE/PF 5,000 UNIT/0.5 ML SYRINGE SQ SCH (08:06)
[2020-09-17] MEDS: FUROSEMIDE 10 MG/ML 2 ML VIAL IV SCH (08:06)
[2020-09-17] MEDS: NYSTATIN 100,000 UNIT/ML SUSP 500,000 UNIT/5 ML CUP PO SCH ×2 (08:07→14:48)
[2020-09-17] MEDS ORDERED: ASPIRIN 325 MG TAB PO SCH (09:00)
--- NOTE | 2020-09-17 10:59 | P.CNPUL ---
History of Present Illness Consult date: 09/17/20 Requesting physician: Dennis Salcido Reason for consult: pulmonary embolism, DVT Chief complaint: Abdominal pain History of present illness: This is a very pleasant 70-year-old gentleman with a known history of glioma blastoma status post surgical resection, chemotherapy and radiation therapy back in February 2020. He remains on Avastin. His oncologist and treatment team her out of [facility]. He has been having issues with seizures and was recently discharged for the same. He presented again to the emergency room yesterday with abdominal pain. Computed tomography scan of the abdomen and pelvis revealed no acute abnormalities. There is mild subsegmental atelectasis in the lung bases. CT angiogram did reveal a left lower lobe pulmonary emboli. Venous Dopplers were positive for acute on chronic left lower extremity DVT. He states he was on Eliquis for about 6 months. But had spent several months since that was discontinued. Echocardiogram revealed preserved left ventricular function. No evidence of right heart strain. He is seen today in consultation on the regular medical floor. He is currently resting comfortably in bed. Laying flat. Maintaining O2 saturations in the 90s on room air. No shortness of breath, cough or congestion. No hemoptysis. White count 4.7. Hemoglobin 12.5. Platelet count 100,000. Sodium 139. Potassium 3.4. Creatinine 0.44. He is currently on a heparin drip. 0.9 normal saline at 50 MLS per hour. Review of Systems REVIEW OF SYSTEMS: CONSTITUTIONAL: Denies any recent significant weight loss or weight gain. EYES: Denies change in vision. EARS, NOSE, MOUTH, THROAT: Denies headaches, denies sore throat. CARDIOVASCULAR: Denies chest pain, palpitations or syncopal episodes. RESPIRATORY: Denies shortness of breath, cough, congestion or hemoptysis. GASTROINTESTINAL: Positive for abdominal pain GENITOURINARY: Denies hematuria, denies infections. MUSKULOSKELETAL: Denies pain, denies swelling. INTEGUMENTARY: Denies rash, denies eczema. NEUROLOGICAL: Denies recent memory loss, no recent seizure activity. PSYCHIATRIC: Denies anxiety, denies depression. HEMATOLOGIC/LYMPHATIC: Denies anemia, denies enlarged lymph nodes. Past Medical History Past Medical History: Deep Vein Thrombosis (DVT), Eye Disorder, Seizure Disorder Additional Past Medical History / Comment(s): glaucoma, brain tumor History of Any Multi-Drug Resistant Organisms: None Reported Past Surgical History: No Surgical Hx Reported Additional Past Surgical History / Comment(s): Colonoscopies; Feet / toenails & cyst off foot; eye lasix surgery, brain surgery for R sided tumor Past Anesthesia/Blood Transfusion Reactions: No Reported Reaction Smoking Status: Former smoker - Past Family History Mother Family Medical History: Cancer Additional Family Medical History / Comment(s): Colon Cancer Medications and Allergies Home Medications Medication Instructions Recorded Confirmed Type Atorvastatin [Lipitor] 20 mg PO HS 12/18/15 09/16/20 History Latanoprost/Pf [Latanoprost 0.005% 1 drop BOTH EYES HS 10/31/17 09/16/20 History Eye Drop] Diclofenac Sodium Gel [Voltaren 2 gm TOPICAL QID PRN 02/27/20 09/16/20 History Gel] Lidocaine-Prilocaine Cream [Emla 1 applic TOPICAL DAILY PRN 02/27/20 09/16/20 History Cream 2.5%/2.5%] Omeprazole 20 mg PO AC-BRKFST 02/27/20 09/16/20 History Sulfamethox-Tmp 800-160Mg [Bactrim 1 tab PO MOWEFR 02/27/20 09/16/20 History DS 800-160 mg] Zolpidem [Ambien] 5 mg PO HS #4 tab 06/13/20 09/16/20 Rx diazePAM [Valium] 5 mg PO Q8H PRN 09/11/20 09/16/20 History levETIRAcetam [Keppra] 1,500 mg PO Q12HR #120 tab 09/12/20 09/16/20 Rx Bevacizumab [Avastin] 1 dose IV Q14D 09/16/20 09/16/20 History Docusate [Colace] 100 mg PO BID PRN 09/16/20 09/16/20 History Nystatin 100,000 Unit/gm Powd 1 applic TOPICAL QID PRN 09/16/20 09/16/20 History [Mycostatin Powder] Nystatin 100,000 Unit/ml Susp 500,000 unit PO QID 09/16/20 09/16/20 History [Mycostatin Oral Susp] dexAMETHasone [Dexamethasone] 3 mg PO DAILY 09/16/20 09/16/20 History valACYclovir HCL [Valtrex] 1,000 mg PO TID PRN 09/16/20 09/16/20 History Allergies Allergy/AdvReac Type Severity Reaction Status Date / Time venom-honey bee Allergy Swelling Verified 09/16/20 06:46 [bee venom (honey bee)] Physical Exam Vitals: Vital Signs Temp Pulse Pulse Resp BP Pulse Ox 09/17/20 07:00 98.1 F 73 15 147/84 97 09/17/20 02:03 16 09/17/20 00:39 98.1 F 99 20 147/84 94 L 09/16/20 22:00 16 09/16/20 19:10 98.4 F 83 16 156/83 95 09/16/20 15:00 98.2 F 87 16 152/93 92 L 09/16/20 14:00 83 16 Intake and Output 09/16/20 09/17/20 09/17/20 22:59 06:59 14:59 Intake Total 600 Output Total 700 850 Balance -700 -250 Intake: IV 600 Sodium Chloride 0.9% 1, 600 000 ml @ 50 mls/hr IV . Q20H [facility] Rx#:[id number] Output: Urine 700 850 Other: Voiding Method External Catheter External Catheter GENERAL EXAM: Alert, very pleasant 70-year-old gentleman, on room air, comfortable in no apparent distress. HEAD: Normocephalic. EYES: Normal reaction of pupils, equal size. NOSE: Clear with pink turbinates. THROAT: No erythema or exudates. NECK: No masses, no JVD. CHEST: No chest wall deformity. LUNGS: Equal air entry with no crackles, wheeze, rhonchi or dullness. CVS: S1 and S2 normal with no audible murmur, regular rhythm. ABDOMEN: No hepatosplenomegaly, normal bowel sounds, no guarding or rigidity. SPINE: No scoliosis or deformity SKIN: No rashes CENTRAL NERVOUS SYSTEM: No focal deficits, tone is normal in all 4 extremities. EXTREMITIES: There is no peripheral edema. No clubbing, no cyanosis. Peripheral pulses are intact. Results - Laboratory Findings CBC and BMP: 09/17/20 05:59 09/17/20 05:59 PT/INR, D-dimer PT 10.0 sec (9.0-12.0) 09/16/20 22:01 INR 0.9 (<1.2) 09/16/20 22:01 D-Dimer 2.76 mg/L FEU (<0.60) H 09/16/20 12:49 Abnormal lab findings: Abnormal Labs 09/16/20 09/16/20 09/16/20 02:49 02:49 02:49 RBC 4.24 L Hgb Hct MCV 101.4 H RDW 15.8 H Plt Count 91 L APTT D-Dimer Potassium Chloride Creatinine 0.46 L Glucose 131 H Plasma Lactic Acid Leo 2.3 H* Alkaline Phosphatase 37 L Total Protein 5.9 L Albumin Ur Specific [place] 09/16/20 09/16/20 09/16/20 03:51 12:49 18:33 RBC Hgb Hct MCV RDW Plt Count APTT D-Dimer 2.76 H Potassium Chloride Creatinine 0.48 L Glucose 135 H Plasma Lactic Acid Leo Alkaline Phosphatase Total Protein Albumin Ur Specific [place] 1.040 H 09/16/20 09/17/20 09/17/20 22:01 05:59 05:59 RBC 3.57 L Hgb 12.5 L Hct 36.4 L MCV 101.9 H RDW Plt Count 100 L APTT 21.0 L D-Dimer Potassium 3.4 L Chloride 108 H Creatinine 0.44 L Glucose Plasma Lactic Acid Leo Alkaline Phosphatase 37 L Total Protein 5.1 L Albumin 3.1 L Ur Specific [place] 09/17/20 05:59 RBC Hgb Hct MCV RDW Plt Count APTT 57.6 H D-Dimer Potassium Chloride Creatinine Glucose Plasma Lactic Acid Leo Alkaline Phosphatase Total Protein Albumin Ur Specific [place] - Diagnostic Findings Chest x-ray: image reviewed CT scan - chest: image reviewed Assessment and Plan Assessment: 1 Abdominal pain of unclear etiology 2 Left lower lobe pulmonary emboli 3 Acute on chronic left lower extremity DVT, previously treated with Eliquis for 6 months 4 History of glioblastoma status post surgical resection, chemotherapy, radia tion therapy. On Avastin. Treated at [facility] no 5 History of seizures 6 Anxiety 7 Chronic tobacco dependence Plan: The patient was seen and evaluated by Dr. Arellano Chest x-ray, CAT scans and labs reviewed Continue heparin drip for now To be transitioned to factor X inhibitor Will most likely need lifelong anticoagulation We will continue to follow and make further recommendations based on his clinical status I, the cosigning physician, performed a history & physical examination of the patient. Lungs sounds are clear. Maintaining good O2 saturations in the 90s on room air. I discussed the assessment and plan of care with my nurse practitioner, Georgia Ya. I attest to the above consultation as dictated by her. Time with Patient: Greater than 30
--- NOTE | 2020-09-17 13:03 | ECHOF ---
Referral Reason:chest pain epigastric pain recent hx of pe/dvt MEASUREMENTS -------- HEIGHT: 182.9 cm WEIGHT: 90.7 kg BP: RVIDd: 3.6 cm (< 3.3) IVSd: 1.4 cm (0.6 - 1.1) LVIDd: 4.1 cm (3.9 - 5.3) LVPWd: 1.4 cm (0.6 - 1.1) IVSs: 1.4 cm LVIDs: 2.4 cm LVPWs: 1.5 cm LA Diam: 3.4 cm (2.7 - 3.8) Ao Diam: 4.0 cm (2.0 - 3.7) AV Cusp: 2.0 cm (1.5 - 2.6) MV E Obed: 0.57 m/s MV DecT: 256 ms MV A Obed: 0.63 m/s MV E/A Ratio: 0.91 RAP: 5.00 mmHg RVSP: 14.73 mmHg FINDINGS -------- Sinus rhythm. This was a technically adequate study. The left ventricular size is normal. There is mild concentric left ventricular hypertrophy. Overa ll left ventricular systolic function is low-normal with, an EF between 50 - 55 %. The right ventricle is mildly enlarged. The left atrial size is normal. The right atrial size is normal. The aortic valve is trileaflet, and appears structurally normal. No aortic stenosis or regurgitation. Mild mitral annular calcification present. Mild mitral regurgitation is present. Mild tricuspid regurgitation present. Right ventricular systolic pressure is normal at < 35 mmHg. There is no pulmonic regurgitation present. Echo free space represents a pericardial fat pad. CONCLUSIONS -------- 1. The left ventricular size is normal. 2. There is mild concentric left ventricular hypertrophy. 3. Overall left ventricular systolic function is low-normal with, an EF between 50 - 55 %. 4. The right ventricle is mildly enlarged. 5. The left atrial size is normal. 6. The right atrial size is normal. 7. The aortic valve is trileaflet, and appears structurally normal. No aortic stenosis or regurgitati on. 8. Mild mitral annular calcification present. 9. Mild mitral regurgitation is present. 10. Mild tricuspid regurgitation present. 11. Echo free space represents a pericardial fat pad. SOFTWARE QA MANAGER: Arlette Wolf RDCS
[2020-09-17 13:29] LABS: Chol/HDL Ratio 4.61; Cholesterol 166 mg/dL (0-200)
--- NOTE | 2020-09-17 14:00 | CONS ---
CONSULTATION CARDIOLOGY CONSULTATION NOTE: Jignesh is a 69-year-old gentleman who is admitted to hospital with chest pain. His initial symptom was in the form of abdominal discomfort and was associated with some nausea and the pain had subsequently been felt in the chest, also. He has a history of glioblastoma and had surgery. He does not know exactly when. He has history of dyslipidemia and GERD. Patient underwent a CT scan of the abdomen and pelvis, which was unremarkable. The patient has a history of DVT and a CT scan of the chest on this admission revealed a small embolus in the left lower lobe without any evidence of strain. The patient had an echocardiogram that showed normal LV systolic function. An EKG showed sinus rhythm with nonspecific ST-T wave changes. LABS: Labs show that the hemoglobin is 12.5, creatinine 0.4. Troponin is negative. PAST MEDICAL HISTORY: Significant for dyslipidemia, DVT, intracranial mass status post surgery. MEDICATIONS: Medications at home included Valtrex, Valium, Ambien, Voltaren, Keppra, Lipitor, sulfa, omeprazole, Avastin, and dexamethasone. Allergic to HONEY BEE. FAMILY HISTORY: Negative for premature coronary artery disease. SOCIAL HISTORY: Negative for current smoking, EtOH abuse or drug abuse. REVIEW OF SYSTEMS: HEENT is unremarkable. CARDIAC as described above. RESPIRATORY negative. GI negative. GENITOURINARY negative. ALLERGY negative SKIN negative. MUSCULOSKELETAL significant for arthritis. PSYCHOSOCIAL Negative. ENDOCRINE/DERM negative. CONSTITUTIONAL negative. Rest of the system review is not relevant. EXAM: Afebrile, heart rate is 73 beats per minute, blood pressure is 147/84, respiratory is 15, O2 saturation is 97% on room air. There is no jugular venous distention. Carotid upstroke is normal. There is no bruit. CHEST exam reveals good air entry bilaterally. HEART exam reveals first and second heart sounds. No gallop. No murmur. No rub. ABDOMEN is soft, nontender. Examination of EXTREMITIES did not reveal any edema. Peripheral pulses are felt. ASSESSMENT: Chest pain secondary to acute pulmonary embolism. PLAN: Patient is on IV heparin. If he tolerates it well, we will we will consider starting the patient on oral anticoagulant, after we get an opinion from the neurologist. We want to get some records on his intracranial surgery and also seek input from the neurologist here before we start him on oral anticoagulants. MMODL / IJN: [id number] /
[2020-09-17 14:05] VITALS: BP 146/92; PULSE 96; RESP 16; TEMP 97.4
[2020-09-17] MEDS ORDERED: POTASSIUM CHLORIDE ER 20 MEQ TAB.ER PO STA (14:13)
--- NOTE | 2020-09-17 14:53 | P.DS ---
Providers Date of admission: 09/16/20 04:59 Attending physician: Dennis Salcido Consults: 09/16/20 12:18 Consult Physician Urgent Consulting Provider: Tony Mireles Consult Reason/Comments: chest pain Do you want consulting provider notified?: Yes 09/16/20 22:51 Consult Physician Urgent Consulting Provider: Eric Arellano Consult Reason/Comments: PE Do you want consulting provider notified?: Yes Primary care physician: Dennis Salcido Hospital Course: 70-year-old pleasant male with known history of glioblastoma had the history of pulmonary embolism for which patient the was on Eliquis for 6 months after which this was discontinued and patient is today came in with the chest pain and upper abdominal pain. Patient had a CT angiogram which showed left lower lobe pulmonary emboli and venous Doppler is positive for acute on chronic left lower extremity DVT. Patient's Eliquis was discontinued several months ago. Patient is medically stable patient had an echocardiogram which did not show any right went to strain there is no elevation of troponin. Patient was started on IV heparin. This will be transitioned to Eliquis and patient probably will be discharged today. Patient's potassium is low at 3.4 rest and replaced. Patient is on prophylactic Bactrim which has a diuretic affect and the will make the potassium go down I'll give him a potassium supplementation as well. Patient is on Prilosec. Patient is on Avastin for glioblastoma. Patient does have a significant generalized weakness, asked the patient and his regarding placement in subacute rehabilitation apparently patient was in rehab and didn't benefit from that and hoping that he can get home care instead of rehab. Patient will be discharged home on Eliquis later today. PHYSICAL EXAMINATION: GENERAL: The patient is alert and oriented x3, not in any acute distress. Well developed, well nourished. HEENT: Pupils are round and equally reacting to light. EOMI. No scleral icterus. No conjunctival pallor. Normocephalic, atraumatic. No pharyngeal erythema. No thyromegaly. CARDIOVASCULAR: S1 and S2 present. No murmurs, rubs, or gallops. PULMONARY: Chest is clear to auscultation, no wheezing or crackles. ABDOMEN: Soft, nontender, nondistended, normoactive bowel sounds. No palpable organomegaly. MUSCULOSKELETAL: No joint swelling or deformity. EXTREMITIES: No cyanosis, clubbing, or pedal edema. NEUROLOGICAL: Gross neurological examination did not reveal any new focal deficits. He does have chronic weakness and bilateral lower extremities with muscle atrophy SKIN: No rashes. -Pulmonary embolism: Anti-correlation as mentioned above patient doesn't have any more abdominal pain had his pain is mostly lower chest pain. Right went to strain as mentioned above will be discharged today most probably on Eliquis. -Acute on chronic left lower extremity DVT, patient does have history of glioblastoma on active treatment which is probably responsible for his DVT. -History of glioblastoma multiforme A status post surgical resection patient is on chemotherapy and radiation therapy patient is on prophylactic antivirals and Bactrim which will be continued -Anxiety disorder -Chronic nicotine dependence -Wasting -Generalized deconditioning - Patient Condition at Discharge: Undetermined Plan - Discharge Summary Discharge Rx Participant: No New Discharge Prescriptions: New Apixaban [Eliquis Starter Pack (for VTE)] 0 mg PO DIRECTED 30 Days #1 pack Continue Atorvastatin [Lipitor] 20 mg PO HS Latanoprost/Pf [Latanoprost 0.005% Eye Drop] 1 drop BOTH EYES HS Sulfamethox-Tmp 800-160Mg [Bactrim DS 800-160 mg] 1 tab PO MOWEFR Omeprazole 20 mg PO AC-BRKFST Diclofenac Sodium Gel [Voltaren Gel] 2 gm TOPICAL QID PRN PRN Reason: KNEE PAIN Lidocaine-Prilocaine Cream [Emla Cream 2.5%/2.5%] 1 applic TOPICAL DAILY PRN PRN Reason: port access Zolpidem [Ambien] 5 mg PO HS #4 tab diazePAM [Valium] 5 mg PO Q8H PRN PRN Reason: Anxiety dexAMETHasone [Dexamethasone] 3 mg PO DAILY Nystatin 100,000 Unit/ml Susp [Mycostatin Oral Susp] 500,000 unit PO QID Bevacizumab [Avastin] 1 dose IV Q14D levETIRAcetam [Keppra] 1,500 mg PO Q12HR #120 tab Docusate [Colace] 100 mg PO BID PRN PRN Reason: Constipation valACYclovir HCL [Valtrex] 1,000 mg PO TID PRN PRN Reason: Cold Sores Nystatin 100,000 Unit/gm Powd [Mycostatin Powder] 1 applic TOPICAL QID PRN PRN Reason: groin Discharge Medication List Atorvastatin [Lipitor] 20 mg PO HS 12/18/15 [History] Latanoprost/Pf [Latanoprost 0.005% Eye Drop] 1 drop BOTH EYES HS 10/31/17 [History] Diclofenac Sodium Gel [Voltaren Gel] 2 gm TOPICAL QID PRN 02/27/20 [History] Lidocaine-Prilocaine Cream [Emla Cream 2.5%/2.5%] 1 applic TOPICAL DAILY PRN 02/27/20 [History] Omeprazole 20 mg PO AC-BRKFST 02/27/20 [History] Sulfamethox-Tmp 800-160Mg [Bactrim DS 800-160 mg] 1 tab PO MOWEFR 02/27/20 [History] Zolpidem [Ambien] 5 mg PO HS #4 tab 06/13/20 [Rx] diazePAM [Valium] 5 mg PO Q8H PRN 09/11/20 [History] levETIRAcetam [Keppra] 1,500 mg PO Q12HR #120 tab 09/12/20 [Rx] Bevacizumab [Avastin] 1 dose IV Q14D 09/16/20 [History] Docusate [Colace] 100 mg PO BID PRN 09/16/20 [History] Nystatin 100,000 Unit/gm Powd [Mycostatin Powder] 1 applic TOPICAL QID PRN 09/16/20 [History] Nystatin 100,000 Unit/ml Susp [Mycostatin Oral Susp] 500,000 unit PO QID 09/16/20 [History] dexAMETHasone [Dexamethasone] 3 mg PO DAILY 09/16/20 [History] valACYclovir HCL [Valtrex] 1,000 mg PO TID PRN 09/16/20 [History] Apixaban [Eliquis Starter Pack (for VTE)] 0 mg PO DIRECTED 30 Days #1 pack 09/17/20 [Rx] Follow up Appointment(s)/Referral(s): Dennis Salcido MD [Primary Care Provider] - 3 Days Discharge Disposition: HOME WITH HOME HEALTH SERVICES
[2020-09-17] MEDS ORDERED: APIXABAN 5 MG TAB PO SCH (16:01)
== END 2020-09-17 18:14 | disposition home health service (06) ==
LOC: EC 02:09 → 6NMEDSUR 04:59
PROVIDERS: ADMIT Family Medicine; ATTEND Family Medicine
DX: I26.99 Other pulmonary embolism without acute cor pulmonale (principal); R10.13 Epigastric pain; E86.0 Dehydration; I82.412 Acute embolism and thrombosis of left femoral vein; I82.512 Chronic embolism and thrombosis of left femoral vein; K21.9 Gastro-esophageal reflux disease without esophagitis; G40.909 Epilepsy, unspecified, not intractable, without status epilepticus; I10 Essential (primary) hypertension; H40.9 Unspecified glaucoma; F17.200 Nicotine dependence, unspecified, uncomplicated; E78.5 Hyperlipidemia, unspecified; F32.9 Major depressive disorder, single episode, unspecified; F41.8 Other specified anxiety disorders; M19.90 Unspecified osteoarthritis, unspecified site; M62.81 Muscle weakness (generalized); M62.562 Muscle wasting and atrophy, not elsewhere classified, left lower leg; M62.561 Muscle wasting and atrophy, not elsewhere classified, right lower leg; R74.02 Elevation of levels of lactic acid dehydrogenase [LDH]; R60.0 Localized edema; J98.11 Atelectasis; E66.9 Obesity, unspecified; Z68.27 Body mass index [BMI] 27.0-27.9, adult; Z79.52 Long term (current) use of systemic steroids; Z79.899 Other long term (current) drug therapy; Z91.030 Bee allergy status; Z98.890 Other specified postprocedural states; Z85.841 Personal history of malignant neoplasm of brain; Z92.3 Personal history of irradiation; Z92.21 Personal history of antineoplastic chemotherapy; Z80.0 Family history of malignant neoplasm of digestive organs
CPT/HCPCS: 96376 ×2; 96365; 96366; 96372; 96375 ×2; 93005 ×2; 96361; 99285; 36415; 93306 ×2; 85379; 80061; 80053 ×2; 80048; 82150; 83605; 83690; 84484; 85025 ×2; 85610; 85730 ×2; 81003; 71045; 93970; 71275; 74177; G0378 ×2; J2270; J0360; J1940 ×2; J2405; J1170; J8540 ×2; Q9967 ×2; J1644 ×2